=== PATIENT | female | born 1935 | race Caucasian/White ===

== ENCOUNTER 2017-03-04 04:55 | Emergency (ER) | payer MEDICARE, OTHER ==
[2017-03-04] MEDS ORDERED: Aspirin 81 MG Tab.Chew PO ONE (04:59)
[2017-03-04] MEDS ORDERED: Lactated Ringers 1,000 ML IV ONE (05:43)
[2017-03-04] MEDS ORDERED: Prochlorperazine 10 MG/2 ML SDV IVPUSH ONE (05:43)
[2017-03-04] MEDS ORDERED: Sodium Chloride 0.9% 10 ML Syringe FLUSH PRN (05:51)
--- NOTE | 2017-03-04 06:02 | EDM.PDOC ---
ED HPI GENERAL MEDICAL PROBLEM - General Chief Complaint: Gastrointestinal Problem Stated Complaint: NVD Time Seen by Provider: 03/04/17 05:50 Source of Information: Reports: Patient, RN History Limitations: Reports: No Limitations - History of Present Illness INITIAL COMMENTS - FREE TEXT/NARRATIVE: 81 yo female arrives from her assisted living facility via EMS for vomiting and diarrhea that began about 3 pm yesterday. Denies fever or blood in her stool or emesis. No abdominal pain. No known exposures. Onset: Gradual Onset Date: 03/03/17 Onset Time: 03:00 Duration: Hour(s):, Waxing/Waning Location: Reports: Other (no pain) Severity: Moderate Improves with: Reports: None Worsens with: Reports: Eating Context: Reports: Sick Contact Associated Symptoms: Reports: Loss of Appetite, Nausea/Vomiting, Weakness. Denies: Diaphoresis, Fever/Chills Treatments BATH STEWARD: Reports: Other (see below) (none) - Related Data Allergies Allergy/AdvReac Type Severity Reaction Status Date / Time acetaminophen [From Percocet] Allergy Hallucinati Verified 03/04/17 05:40 ons oxycodone HCl [From Percocet] Allergy Hallucinati Verified 03/04/17 05:40 ons Home Meds: Home Meds Aspirin [[place] Aspirin] 81 mg PO DAILY #30 tab.chew 05/08/14 [Rx] Benazepril HCl [Benazepril HCl] 5 mg PO DAILY 05/08/14 [History] Citalopram Hydrobromide [Citalopram HBr] 20 mg PO BEDTIME 05/08/14 [History] Hydrochlorothiazide 12.5 mg PO DAILY 05/08/14 [History] Metoprolol Succinate [Toprol XL] 50 mg PO DAILY 05/08/14 [History] Psyllium with Sucrose [Metamucil] 1 dose PO .Q OTHER DAY 05/08/14 [History] Donepezil [Aricept] 5 mg PO BEDTIME 02/13/15 [History] Naproxen Sodium [Naproxen Sodium ER] 500 mg PO BIDAC #20 tablet.er 02/13/15 [Rx] Scopolamine [Transderm-Scop] 1 patch TD Q3D #7 patch 02/13/15 [Rx] Prochlorperazine [Compazine] 25 mg RC TID PRN #7 supp.rect 03/04/17 [Rx] Past Medical History Cardiovascular History: Reports: Hypertension Other Gastrointestinal History: occasional constipation Other Musculoskeletal History: arthritis Other Neuro History: trouble with memory Social & Family History - Family History Family Medical History: Noncontributory - Tobacco Use Smoking Status *Q: Never Smoker Years of Tobacco use: 10 Packs/Tins Daily: 0.5 Used Tobacco, but Quit: Yes Month Tobacco Last Used: unknown Second Hand Smoke Exposure: No - Alcohol Use Days Per Week of Alcohol Use: 0 - Recreational Drug Use Recreational Drug Use: No ED ROS GENERAL - Review of Systems Review Of Systems: See Below Constitutional: Reports: No Symptoms HEENT: Reports: No Symptoms Respiratory: Reports: No Symptoms Cardiovascular: Reports: No Symptoms Endocrine: Reports: No Symptoms GI/Abdominal: Reports: Diarrhea, Decreased Appetite, Nausea, Vomiting. Denies: Abdominal Pain, Black Stool, Bloody Stool, Constipation, Distension, Flatus, Hematemesis, Hematochezia, Melena, Stool Incontinence : Reports: No Symptoms Musculoskeletal: Reports: No Symptoms Skin: Reports: No Symptoms Neurological: Reports: No Symptoms Psychiatric: Reports: No Symptoms ED EXAM, GI/ABD - Physical Exam Exam: See Below Exam Limited By: No Limitations General Appearance: Alert, WD/WN, Mild Distress Eyes: Bilateral: Normal Appearance Ears: Normal External Exam, Normal Canal, Hearing Grossly Normal Nose: Normal Inspection, Normal Mucosa, No Blood Throat/Mouth: Normal Inspection, Normal Lips, Normal Oropharynx, Normal Voice, No Airway Compromise Head: Atraumatic, Normocephalic Neck: Normal Inspection Respiratory/Chest: No Respiratory Distress, Lungs Clear, Normal Breath Sounds, No Accessory Muscle Use Cardiovascular: Regular Rate, Rhythm, No Edema GI/Abdominal Exam: Normal Bowel Sounds, Soft, Non-Tender, No Distention Back Exam: Normal Inspection. No: CVA Tenderness (R), CVA Tenderness (L) Extremities: Normal Inspection, Normal Range of Motion, Non-Tender, No Pedal Edema Neurological: Alert, Oriented, CN II-XII Intact, Normal Cognition, No Motor/ Sensory Deficits Psychiatric: Normal Affect, Normal Mood Skin Exam: Warm, Dry, Intact, Normal Color, No Rash Lymphatic: No Adenopathy Course - Vital Signs Last Recorded V/S: Last Vital Signs Temp 36.4 C 03/04/17 06:14 Pulse 86 03/04/17 06:14 Resp 20 03/04/17 06:14 BP 172/96 H 03/04/17 06:14 Pulse Ox 96 03/04/17 06:14 - Orders/Labs/Meds Orders: Active Orders 24 hr Category Date Time Status Sodium Chloride 0.9% [Saline Flush] Med 03/04/17 05:51 Active 10 ml FLUSH ASDIRECTED PRN Saline Lock Insert [OM.PC] Routine Oth 03/04/17 05:51 Ordered EKG 12 Lead [EK] Routine Ther 03/04/17 05:09 Stop Req Medication Orders Sodium Chloride (Saline Flush) 10 ml FLUSH ASDIRECTED PRN PRN Reason: Keep Vein Open Last Admin: 03/04/17 06:27 Dose: 10 ml Labs: Laboratory Tests 03/04/17 Range/Units 06:05 Sodium 133 L (135-145) mmol/L Potassium 3.7 (3.5-5.3) mmol/L Chloride 97 L (100-110) mmol/L Carbon Dioxide 25 (23-29) mmol/L BUN 19 (8-23) mg/dL Creatinine 0.9 (0.6-1.3) mg/dL Est Cr Clr Drug Dosing 45.89 mL/min Estimated GFR (MDRD) > 60 (>60) BUN/Creatinine Ratio 21.1 H (9-20) Glucose 204 H D (80-116) mg/dL Calcium 9.5 (8.6-10.2) mg/dL Meds: Medications Generic Name Dose Route Start Last Admin Trade Name Freq PRN Reason Stop Dose Admin Sodium Chloride 10 ml 03/04/17 05:51 03/04/17 06:27 Saline Flush FLUSH 10 ml ASDIRECTED PRN Administration Keep Vein Open Discontinued Medications Generic Name Dose Route Start Last Admin Trade Name Freq PRN Reason Stop Dose Admin Diphenoxylate HCl/Atropine 1 tab 03/04/17 06:42 Lomotil 0.025-2.5 Mg PO 03/04/17 06:43 ONETIME ONE Lactated Ringer's 1,000 mls @ 1,000 mls/hr 03/04/17 05:43 03/04/17 06:27 Ringers, Lactated IV 03/04/17 06:42 1,000 mls/hr BOLUS ONE Administration Prochlorperazine Edisylate 5 mg 03/04/17 05:43 03/04/17 06:27 Compazine IVPUSH 03/04/17 05:44 5 mg ONETIME ONE Administration Departure - Departure Time of Disposition: 07:10 Disposition: Home, Self-Care 01 Condition: Fair Clinical Impression: Gastroenteritis, Vomiting, Diarrhea - Discharge Information Prescriptions: Prochlorperazine [Compazine] 25 mg RC TID PRN #7 supp.rect PRN Reason: Nausea Referrals: Christian Mancini MD [Primary Care Provider] - Forms: ED Department Discharge Additional Instructions: Take Compazine 25 mg suppository RI every 8 hrs as needed for nausea. Take Loperamide 1 after each loose stool up to 6 a day. Clear liquids only until no vomiting for 6 hrs, then advance diet slowly as tolerated. Recheck with your doctor if worse or not improving. - My Orders Last 24 Hours: My Active Orders 03/04/17 05:09 EKG 12 Lead [EK] Routine 03/04/17 05:51 Sodium Chloride 0.9% [Saline Flush] 10 ml FLUSH ASDIRECTED PRN Saline Lock Insert [OM.PC] Routine - Assessment/Plan Last 24 Hours: My Active Orders 03/04/17 05:09 EKG 12 Lead [EK] Routine 03/04/17 05:51 Sodium Chloride 0.9% [Saline Flush] 10 ml FLUSH ASDIRECTED PRN Saline Lock Insert [OM.PC] Routine
[2017-03-04 06:15] VITALS: BP 172/96
[2017-03-04] MEDS ORDERED: Atropine/Diphenoxylate 0.025-2.5 MG Tab PO ONE (06:42)
== END 2017-03-04 08:15 | disposition home or self-care (01) ==
LOC: FB.ED 04:55
DX: K52.9 Noninfective gastroenteritis and colitis, unspecified (principal); I10 Essential (primary) hypertension; M19.90 Unspecified osteoarthritis, unspecified site; Z79.899 Other long term (current) drug therapy; Z88.8 Allergy status to other drugs, medicaments and biological substances; Z79.82 Long term (current) use of aspirin
CPT/HCPCS: 36415; 80048; 93005; 96361; 96374; 99285; A9270; J0780; J7050; J7120; 99284

== ENCOUNTER 2018-03-21 11:12 | Emergency (ER) | payer MEDICARE, OTHER ==
--- NOTE | 2018-03-21 11:41 | EDM.PDOC ---
ED HPI GENERAL MEDICAL PROBLEM - General Chief Complaint: Lower Extremity Injury/Pain Stated Complaint: L KNEE PAIN Time Seen by Provider: 03/21/18 11:36 Source of Information: Reports: Patient History Limitations: Reports: No Limitations - History of Present Illness INITIAL COMMENTS - FREE TEXT/NARRATIVE: Complains of worsening left knee pain since walking more than usual 4 days ago. The pain is progressively worsening, is mainly with weight bearing, and not controlled with Tylenol and Ibuprofen. Onset Date: 03/17/18 Duration: Day(s): (4) Location: Reports: Lower Extremity, Left Severity: Moderate Worsens with: Reports: Other (weight bearing) Treatments LACING STRING CUTTER: Reports: Acetaminophen, NSAIDS left knee Pain Score (Numeric/FACES): 8 - Related Data Allergies Allergy/AdvReac Type Severity Reaction Status Date / Time acetaminophen [From Percocet] Allergy Hallucinati Verified 03/21/18 11:24 ons oxycodone HCl [From Percocet] Allergy Hallucinati Verified 03/21/18 11:24 ons Home Meds: Home Meds Metoprolol Succinate [Toprol XL] 50 mg PO DAILY 05/08/14 [History] Acetaminophen [Tylenol Extra Strength] 500 mg PO Q6HR PRN 03/21/18 [History] Citalopram Hydrobromide [Celexa] 20 mg PO DAILY 03/21/18 [History] Ibuprofen 400 mg PO Q6HR PRN 03/21/18 [History] Vit C/Harvey Ac/Lut/Copper/ZnOx [Preservision Softgel] 1 each PO BID 03/21/18 [ History] Past Medical History Cardiovascular History: Reports: Hypertension Gastrointestinal History: Reports: Other (See Below) Other Gastrointestinal History: occasional constipation Musculoskeletal History: Reports: Arthritis, Osteoarthritis Other Musculoskeletal History: arthritis Neurological History: Reports: Other (See Below) Other Neuro History: trouble with memory Endocrine/Metabolic History: Reports: Diabetes, Type II Social & Family History - Family History Family Medical History: Noncontributory - Tobacco Use Smoking Status *Q: Former Smoker Tobacco Use Within Last Twelve Months: No - Caffeine Use Caffeine Use: Reports: Coffee Review of Systems - Review of Systems Review Of Systems: ROS reveals no pertinent complaints other than HPI. ED EXAM, GENERAL - Physical Exam Exam: See Below Exam Limited By: No Limitations General Appearance: Alert, WD/WN, No Apparent Distress Nose: Normal Inspection Throat/Mouth: No Airway Compromise Head: Atraumatic, Normocephalic Neck: Full Range of Motion Respiratory/Chest: No Respiratory Distress Peripheral Pulses: 2+: Dorsalis Pedis (L) GI/Abdominal: No Distention Extremities: Other (Tenderness to left medial knee and proximal aspect of medial calf) Neurological: Normal Cognition, No Motor/Sensory Deficits Psychiatric: Normal Affect, Normal Mood Skin Exam: Warm, Dry, Intact Course - Vital Signs Last Recorded V/S: Last Vital Signs Temp 36.4 C 03/21/18 11:20 Pulse 63 03/21/18 11:20 Resp 17 03/21/18 11:20 BP 167/58 H 03/21/18 11:20 Pulse Ox 97 03/21/18 11:20 - Orders/Labs/Meds Orders: Active Orders 24 hr Category Date Time Status Knee 3V Lt [CR] Stat Exams 03/21/18 11:35 Taken VL Duplex Lwr Ext Veins Ltd Lt [US] Stat Exams 03/21/18 11:35 Taken - Radiology Interpretation Free Text/Narrative:: LLE venous US: no DVT per US tech. Left Knee XR: No acute osseous abnormality Departure - Departure Time of Disposition: 13:03 Disposition: Home, Self-Care 01 Condition: Good Clinical Impression: Knee strain Qualifiers: Encounter type: initial encounter Laterality: left Qualified Code(s): S86.912A - Strain of unspecified muscle(s) and tendon(s) at lower leg level, left leg, initial encounter - Discharge Information *PRESCRIPTION DRUG MONITORING PROGRAM REVIEWED*: No *COPY OF PRESCRIPTION DRUG MONITORING REPORT IN PATIENT DINA: Not Applicable Instructions: Knee Sprain, Adult, [id number] Referrals: Romero Acosta MD [Primary Care Provider] - Forms: ED Department Discharge Additional Instructions: Continue Tylenol and Ibuprofen as needed. Use your walker, weight bear as tolerated. Keep appt with your primary physician tomorrow. - My Orders Last 24 Hours: My Active Orders 03/21/18 11:35 Knee 3V Lt [CR] Stat VL Duplex Lwr Ext Veins Ltd Lt [US] Stat - Assessment/Plan Last 24 Hours: My Active Orders 03/21/18 11:35 Knee 3V Lt [CR] Stat VL Duplex Lwr Ext Veins Ltd Lt [US] Stat
[2018-03-21 13:16] VITALS: BP 155/70
--- NOTE | 2018-03-23 11:25 | CR ---
INDICATION: Pain, no trauma. LEFT KNEE: Five views of the left knee were obtained 03/21/2018. No comparison studies were available. Mild hypertrophic degenerative changes are noted at the intercondylar spines and notches, mostly on the left as to the notch and mostly on the right as to the intercondylar spines. There is also some minimal hypertrophic change medially off the right and to a lesser extent the left tibia. A fracture, dislocation, or other acute bone or joint abnormality was not identified. Mild loss of medial femorotibial joint space is noted on the left with moderate loss of medial patellofemoral joint space also on the left. IMPRESSION: Osteoarthritis, overall more prominent on the left than the right with some joint space loss present on the left. MTDD
--- NOTE | 2018-03-23 11:40 | US ---
INDICATION: Pain behind knee, question DVT. DUPLEX ULTRASOUND, LEFT LOWER EXTREMITY VEINS: Utilizing 2-D real time, duplex Doppler spectral analysis and color flow imaging, examination of the left lower extremity veins revealed no evidence of deep venous thrombosis or obstruction. Compression views showed no abnormal lack of compression to suggest thrombosis. No evidence of incompetence of the valves was identified. No definite Bakers cyst identified. IMPRESSION: Duplex ultrasound, left lower extremity veins, shows no evidence of deep venous thrombosis or incompetence. [facility]
== END 2018-03-21 13:12 | disposition home or self-care (01) ==
LOC: FB.ED 11:12
DX: S86.912A Strain of unspecified muscle(s) and tendon(s) at lower leg level, left leg, initial encounter (principal); I10 Essential (primary) hypertension; E11.9 Type 2 diabetes mellitus without complications; Z87.891 Personal history of nicotine dependence; Z88.6 Allergy status to analgesic agent; X58.XXXA Exposure to other specified factors, initial encounter
CPT/HCPCS: 73562-LT; 93971-LT; 99283; 99284

== ENCOUNTER 2018-11-14 17:02 | Inpatient (IN) | payer MEDICARE, OTHER ==
--- NOTE | 2018-11-14 17:26 | EDM.PDOC ---
ED HPI GENERAL MEDICAL PROBLEM - General Stated Complaint: confusion Time Seen by Provider: 11/14/18 17:15 - History of Present Illness INITIAL COMMENTS - FREE TEXT/NARRATIVE: pt comes from assisted livening with her son with concerns for increased gen weakness and confusion today, pt here oriented only to self, follow simple commands and denies pain or resp or gi sx. pt per report has been having chronic pain at left hip area and recently started on fentanyl 12.5 as well prednisone for this issue. pt also has been on treatment for UTI couple weeks ago. - Related Data Allergies Allergy/AdvReac Type Severity Reaction Status Date / Time acetaminophen [From Percocet] Allergy Hallucinati Verified 11/14/18 17:26 ons morphine Allergy Other Verified 11/14/18 17:29 oxycodone HCl [From Percocet] Allergy Hallucinati Verified 11/14/18 17:26 ons propoxyphene Allergy Other Verified 11/14/18 17:29 [From Darvocet-N] Home Meds: Home Meds Metoprolol Succinate [Toprol XL] 50 mg PO DAILY 05/08/14 [History] Acetaminophen [Tylenol Extra Strength] 500 mg PO Q6HR PRN 03/21/18 [History] Citalopram Hydrobromide [Celexa] 20 mg PO DAILY 03/21/18 [History] Calcium Carbonate/Vitamin D3 [Calcium 500 + Vit D 400] 1 each PO BID 11/14/18 [ History] Carboxymethylcellulose Sodium [Refresh Tears 0.5% Ophth Soln] 15 ml EYEBOTH BID 11/14/18 [History] Loperamide HCl [Imodium A-D] 2 mg PO DAILY PRN 11/14/18 [History] Psyllium Husk [Daily Fiber] 1.04 gm PO DAILY 11/14/18 [History] Vit C/E/Zn/Coppr/Lutein/Zeaxan [Preservision Areds 2 Softgel] 1 cap PO BID 11/14 [History] fentaNYL [Fentanyl] 12 mcg TD Q72H 11/14/18 [History] Past Medical History HEENT History: Reports: Impaired Vision Cardiovascular History: Reports: Hypertension Gastrointestinal History: Reports: Other (See Below) Other Gastrointestinal History: occasional constipation Musculoskeletal History: Reports: Arthritis, Osteoarthritis Other Musculoskeletal History: arthritis Neurological History: Reports: Other (See Below) Other Neuro History: trouble with memory Endocrine/Metabolic History: Reports: Diabetes, Type II Social & Family History - Family History Family Medical History: Noncontributory - Caffeine Use Caffeine Use: Reports: Coffee ED ROS GENERAL - Review of Systems Review Of Systems: Unable To Obtain (due to AMS) ED EXAM, GENERAL - Physical Exam Exam: See Below Exam Limited By: Altered Mental Status General Appearance: Alert Eye Exam: Bilateral Eye: PERRL Nose: Normal Inspection, Normal Mucosa Throat/Mouth: Normal Inspection Respiratory/Chest: No Respiratory Distress, Lungs Clear Cardiovascular: Normal Peripheral Pulses, Regular Rate, Rhythm GI/Abdominal: Normal Bowel Sounds, Soft, Non-Tender Back Exam: Normal Inspection Extremities: Normal Inspection, Normal Range of Motion Neurological: Alert, CN II-XII Intact. No: Oriented Psychiatric: Flat Affect Skin Exam: Warm Course - Vital Signs Text/Narrative:: labs and CXR results were explained to pt son , pt has gen weakness and some confusion likely related to dehydration and recent fentanyl use , will admit pt, hold fentanyl and continue with gentle hydration. Last Recorded V/S: Last Vital Signs Temp 36.3 C 11/14/18 17:10 Pulse 69 11/14/18 17:10 Resp 12 11/14/18 17:10 BP 127/67 11/14/18 17:10 Pulse Ox 95 11/14/18 17:10 - Orders/Labs/Meds Orders: Active Orders 24 hr Category Date Time Status Patient Status [ADT] Routine ADT 11/14/18 18:20 Ordered Oxygen Therapy [RC] PRN Care 11/14/18 18:20 Ordered Up With Assistance [RC] ASDIRECTED Care 11/14/18 18:20 Ordered VTE/DVT Education [RC] Per Unit Routine Care 11/14/18 18:20 Ordered Vital Signs [RC] Q8H Care 11/14/18 18:20 Ordered Regular Diet [DIET] Diet 11/15/18 Breakfast Ordered CXR [Chest 1V Frontal] [CR] Stat Exams 11/14/18 17:29 Ordered Enoxaparin [Lovenox] Med 11/14/18 18:30 Ordered 30 mg SUBCUT Q24H Sodium Chloride 0.9% @ 100 MLS/HR(1,000ml) Med 11/14/18 17:30 Ordered Sodium Chloride 0.9% [Normal Saline] 1,000 ml IV ASDIRECTED Sodium Chloride 0.9% [Saline Flush] Med 11/14/18 17:40 Active 10 ml FLUSH ASDIRECTED PRN Sodium Chloride 0.9% [Saline Flush] Med 11/14/18 18:20 Ordered 10 ml FLUSH ASDIRECTED PRN Peripheral IV Insertion Adult [OM.PC] Routine Oth 11/14/18 18:20 Ordered Resuscitation Status Routine Resus Stat 11/14/18 18:20 Ordered Medication Orders Sodium Chloride (Normal Saline) 1,000 mls @ 100 mls/hr IV ASDIRECTED CHECO Last Admin: 11/14/18 17:45 Dose: 100 mls/hr Sodium Chloride (Saline Flush) 10 ml FLUSH ASDIRECTED PRN PRN Reason: IV Use Last Admin: 11/14/18 17:40 Dose: 10 ml Labs: Laboratory Tests 11/14/18 11/14/18 11/14/18 Range/Units 17:37 17:38 17:38 WBC 11.2 (4.5-12.0) X10-3/uL RBC 3.32 (3.23-5.20) x10(6)uL Hgb 10.1 L (11.5-15.5) g/dL Hct 30.9 D (30.0-51.3) % MCV 93.0 (80-96) fL MCH 30.4 (27.7-33.6) pg MCHC 32.7 (32.2-35.4) g/dL RDW 13.0 (11.5-15.5) % Plt Count 437 H (125-369) X10(3)uL MPV 6.8 L (7.4-10.4) fL Add Manual Diff Yes Neutrophils % (Manual) 93 H (46-82) % Lymphocytes % (Manual) 4 L (13-37) % Monocytes % (Manual) 3 L (4-12) % Toxic Granulation Few H (NOT SEEN) Sodium 135 (135-145) mmol/L Potassium 4.9 (3.5-5.3) mmol/L Chloride 97 L (100-110) mmol/L Carbon Dioxide 29 (21-32) mmol/L BUN 33 H (7-18) mg/dL Creatinine 1.1 H (0.55-1.02) mg/dL Est Cr Clr Drug Dosing 37.68 mL/min Estimated GFR (MDRD) 47 L (>60) BUN/Creatinine Ratio 30.0 H (9-20) Glucose 170 H (80-116) mg/dL Calcium 8.7 (8.6-10.2) mg/dL Total Bilirubin 0.5 (0.1-1.3) mg/dL AST 24 (5-25) IU/L ALT 27 (12-36) U/L Alkaline Phosphatase 252 H (56-112) IU/L Total Protein 6.0 (6.0-8.0) g/dL Albumin 3.0 L (3.2-4.6) g/dL Globulin 3.0 g/dL Albumin/Globulin Ratio 1.0 Urine Color Yellow (YELLOW) Urine Appearance Clear (CLEAR) Urine pH 7.0 H (5.0-6.5) Ur Specific [place] 1.010 (1.010-1.025) Urine Protein Negative (NEGATIVE) mg/dL Urine Glucose (UA) Normal (NORMAL) mg/dL Urine Ketones 15 H (NEGATIVE) mg/dL Urine Occult Blood Negative (NEGATIVE) Urine Nitrite Negative (NEGATIVE) Urine Bilirubin Negative (NEGATIVE) Urine Urobilinogen 1 H (NEGATIVE) mg/dL Ur Leukocyte Esterase Negative (NEGATIVE) Urine RBC 0-5 (0-5) Urine WBC 0-5 (0-5) Ur Squamous Epith Cells Occasional (NS,R,O) Urine Bacteria Rare H (NS) Meds: Medications Generic Name Dose Route Start Last Admin Trade Name Freq PRN Reason Stop Dose Admin Sodium Chloride 1,000 mls @ 100 mls/hr 11/14/18 17:30 11/14/18 17:45 Normal Saline IV 100 mls/hr ASDIRECTED CHECO Administration Sodium Chloride 10 ml 11/14/18 17:40 11/14/18 17:40 Saline Flush FLUSH 10 ml ASDIRECTED PRN Administration IV Use Departure - Departure Time of Disposition: 18:45 Disposition: Admitted As Inpatient 66 Clinical Impression: Altered mental state - Discharge Information *PRESCRIPTION DRUG MONITORING PROGRAM REVIEWED*: Not Applicable *COPY OF PRESCRIPTION DRUG MONITORING REPORT IN PATIENT DINA: Not Applicable - Problem List & Annotations (1) Altered mental state SNOMED Code(s): 432834488 Code(s): R41.82 - ALTERED MENTAL STATUS, UNSPECIFIED Status: Acute Current Visit: Yes Qualifiers: Altered mental status type: unspecified Qualified Code(s): R41.82 - Altered mental status, unspecified - My Orders Last 24 Hours: My Active Orders 11/14/18 17:29 CXR [Chest 1V Frontal] [CR] Stat 11/14/18 17:30 Sodium Chloride 0.9% @ 100 MLS/HR(1,000ml) Sodium Chloride 0.9% [Normal Saline] 1,000 ml IV ASDIRECTED 11/14/18 17:40 Sodium Chloride 0.9% [Saline Flush] 10 ml FLUSH ASDIRECTED PRN 11/14/18 18:20 Patient Status [ADT] Routine Oxygen Therapy [RC] PRN Up With Assistance [RC] ASDIRECTED VTE/DVT Education [RC] Per Unit Routine Vital Signs [RC] Q8H Sodium Chloride 0.9% [Saline Flush] 10 ml FLUSH ASDIRECTED PRN Peripheral IV Insertion Adult [OM.PC] Routine Resuscitation Status Routine 11/14/18 18:30 Enoxaparin [Lovenox] 30 mg SUBCUT Q24H 11/15/18 Breakfast Regular Diet [DIET] - Assessment/Plan Last 24 Hours: My Active Orders 11/14/18 17:29 CXR [Chest 1V Frontal] [CR] Stat 11/14/18 17:30 Sodium Chloride 0.9% @ 100 MLS/HR(1,000ml) Sodium Chloride 0.9% [Normal Saline] 1,000 ml IV ASDIRECTED 11/14/18 17:40 Sodium Chloride 0.9% [Saline Flush] 10 ml FLUSH ASDIRECTED PRN 11/14/18 18:20 Patient Status [ADT] Routine Oxygen Therapy [RC] PRN Up With Assistance [RC] ASDIRECTED VTE/DVT Education [RC] Per Unit Routine Vital Signs [RC] Q8H Sodium Chloride 0.9% [Saline Flush] 10 ml FLUSH ASDIRECTED PRN Peripheral IV Insertion Adult [OM.PC] Routine Resuscitation Status Routine 11/14/18 18:30 Enoxaparin [Lovenox] 30 mg SUBCUT Q24H 11/15/18 Breakfast Regular Diet [DIET]
[2018-11-14] MEDS: Sodium Chloride 0.9% 10 ML Syringe FLUSH PRN ×2 (17:40→22:50)
[2018-11-14] MEDS: Sodium Chloride 0.9% 1,000 ML IV SCH (17:45)
[2018-11-14] MEDS ORDERED: Sodium Chloride 0.9% 10 ML Syringe FLUSH PRN (18:20)
[2018-11-14] MEDS ORDERED: Enoxaparin 30 MG/0.3 ML Syringe SUBCUT SCH (18:30)
[2018-11-15] MEDS: Sodium Chloride 0.9% 1,000 ML IV SCH ×2 (03:30→14:22)
[2018-11-15] MEDS ORDERED: Metoprolol Succinate 25 MG Tab.ER PO SCH (09:00)
[2018-11-15] MEDS: Acetaminophen 500 MG Tab PO SCH ×3 (09:16→20:33)
[2018-11-15] MEDS: Citalopram 20 MG Tab PO SCH (09:16)
[2018-11-15] MEDS: Carboxymethylcellulose Sodium 0.5% Ophth Soln 15 ML Bottle EYEBOTH SCH ×2 (09:17→20:32)
[2018-11-15] MEDS ORDERED: Iopamidol 755 Mg/ML 75 ML Bottle IV ONE (10:24)
--- NOTE | 2018-11-15 13:53 | CR ---
INDICATION: Altered mental status. CHEST: An AP upright portable view of the chest, 11/14/18, was compared with and 11/12/12. The heart appears slightly generous in size but is emphasized by AP positioning and relatively poor inspiration. The aorta is tortuous with calcification in the arch. Overlying EKG leads are noted. Diminished bone density is note, compatible with osteoporosis. Apparently healed facture of the proximal left humerus is noted. The lungs appear to be somewhat hyperaerated. A definite active infiltrate or effusion was not identified. There is some linear density at the right lung base, which could represent linear atelectatic type change. IMPRESSION: 1. No definite acute process but cannot exclude some minimal linear atelectatic change at the right lung base. 2. Probable ASHD. 3. Probable COPD. MTDD
--- NOTE | 2018-11-15 14:55 | CT ---
INDICATION: Back pain. CT CHEST, ABDOMEN, AND PELVIS WITH CONTRAST: Spiral 3.75 mm axial sections were obtained through the chest, abdomen, and pelvis with sagittal and coronal reconstructions with 75 mL Isovue 370 at 1.5 mL/second, 11/15/18. No comparison CTs were available. There is a comparison x-ray of the pelvis dated 06/25/09. In addition to the standard images of the abdomen and pelvis, an 8-minute delayed set of images was obtained. Total exam DLP = 1,507.83 mGy-cm. CT CHEST: Examination of the chest was obtained as noted above and revealed calcifications in the arch of the aorta and brachiocephalic vessels. No mediastinal mass was seen. The heart appears slightly generous with probable coronary artery calcifications. No pericardial effusion was seen. No significant appearing mediastinal lymphadenopathy was seen. There is some minimal infiltrate and/or atelectasis in the middle lobe. No nodular masses were identified in the lungs or pleural spaces. No definite consolidating pneumonia or effusion was seen. IMPRESSION: 1. Infiltrate and/or subsegmental atelectasis middle lobe. Pneumonia could be present in that area. 2. Probable ASHD. 3. ASD. 4. No acute abnormality otherwise suggested. CT ABDOMEN AND PELVIS: Examination of the abdomen and pelvis was obtained by CT as noted above. At the posterolateral upper pole of the left kidney, there is an oval low density mass, most likely representing a simple cyst, measuring 3 cm. It is splaying the renal parenchyma somewhat and is somewhat exophytic. No other renal masses were identified - no definite renal calcinosis was seen. The proximal ureters, especially the right, are slightly dilated of questionable significance, where it becomes normal in caliber, raising question of a relative obstructive process in that area. No specific etiology for obstruction was seen at the site of transition to normal ureteral diameters. This appearance may be an anatomic variant or due to previous obstruction and should be correlated clinically. The urinary bladder had a thickened wall, raising question of cystitis. It is impressed upon by soft tissue density emanating from the area of the pubic symphysis on the right to a greater extent than the left with what appears to be an expansile lesion or severely comminuted fracture with hemorrhage on the right, producing a soft tissue mass impressing on the urinary bladder along its anterior aspect. Additionally, adjacent to that area and along the right lateral aspect of the urinary bladder , there is an oval low density lesion with rind that appears to be at least superficially connected to the urinary bladder and could represent a large diverticulum. No definite contrast was noted within this area, however, and it could represent a mass, possibly a hematoma. It measures 79 x 39 mm on axial image #89 of the delayed images obtained at 1202 hours. The possibility of a pathologic comminuted fracture of the symphysis area would be a consideration - correlate clinically. Also noted were what appeared to be insufficiency fractures through the sacral ala bilaterally, extending craniocaudad and anteroposterior with minimal deformity. A moderate dextroconvex rotoscoliosis of the upper middle lumbar spine is noted. Fairly severe degenerative disk disease is noted from L1 through S1 with hypertrophic degenerative changes of moderate to moderately severe degree. Also noted are degenerative changes and disk disease in the middle to lower thoracic spine levels with multiple vacuum disk phenomena noted throughout the lumbosacral spine and thoracic spine areas. No definite acute vertebral fracture site was identified. There is slight reversal of normal cervical lordosis in the upper middle lumbar spine. The spleen had a normal appearance. The gallbladder is absent, compatible with history of its removal. The common bile duct is normal in caliber, allowing for that. No definite liver lesions were identified with the liver appearing normal in density and size. The pancreas was diminutive in size but otherwise unremarkable. No definite adrenal abnormality was seen. No retroperitoneal mass was seen. Calcifications are noted in the aorta, distal splenic artery, and in the iliac and femoral arteries. Hip pinning device is noted at the left hip. The appendix is not definitely visualized - no evidence of free air or bowel obstruction was seen. Sigmoid diverticulosis is noted without definite evidence of diverticulitis. IMPRESSION: 1. Appearance of an expansile comminuted fracture site at the right pubic ramus with a lesser degree of similar appearance at the pubic symphysis on the left. There appears to be somewhat of a soft tissue mass associated with this area of expanded fractured right pubic symphysis possibly with some contrast enhancement, raising question of a pathologic fracture of the pubic symphysis. Additionally, adjacent to the right lateral urinary bladder, there is a 7.9 cm x 3.9 cm low density mass, which may represent a hematoma or possibly a large bladder diverticulum. It did not fill with contrast on the 90-minute delayed images. 2. Thickening of the urinary bladder wall, raising question of cystitis. 3. Degenerative changes and disk disease thoracolumbosacral spine with scoliosis. 4. ASD. 5. Insufficiency type fractures are suggested longitudinally through the sacral ala bilaterally with minimal deformity. 6. Mild sigmoid diverticulosis is noted without evidence of diverticulitis. MTDD
[2018-11-16] MEDS: traMADol 50 MG Tab PO PRN (07:45)
--- NOTE | 2018-11-16 08:01 | HP ---
ADMISSION DATE: 11/14/2018 HISTORY OF PRESENT ILLNESS: Ms. Woodall is an 83-year-old resident of [facility] with a history of osteoarthritis, hypertension, mild dementia, mild cognitive deficits, osteoporosis with previous fractures, and a recent history of back pain. According to the patient and her son, she developed episode of moderately severe back pain approximately a month ago. There was no major injury at the time, but it was significant enough to be seen in the clinic for it. She was treated with Tylenol and Lidoderm patches, but the back pain has persisted. She had a followup visit to the clinic with Dr. Vaughn on November 10, five days ago, where Duragesic patch plus prednisone 60 mg per day was started. Subsequent to that, by the third day after removal of the old patch and application of the new one, she got significantly confused, disoriented, and had episodes of delirium. According to her son, this has happened to a mild degree with previous narcotic medications. She was brought to the ER, where she was evaluated and is now admitted to acute care. PAST MEDICAL HISTORY: Not reliable from the patient, but on review of her records, significant for osteoarthritis of the knees. Last month she was also admitted to a hospital while on vacation in [place] for apparent blood in the stools, loose stools, and possible urinary tract infection. Evaluation in clinic showed severe arthritis, osteoporotic compression fractures with severe deforming scoliosis of the lumbar spine. Other past history includes chronic essential hypertension. She is status post appendectomy, cholecystectomy, left humerus fracture, T and A, SKYLAR-BSO. She has had mild dementia, anxiety, and she recently underwent a flexible sigmoidoscopy for suspected rectal mass not seen during scope. MEDICATIONS: 1. Duragesic patch removed yesterday due to the mental status change. 2. She has also been on prednisone 60 mg per day, starting 3 days ago. 3. Toprol-XL 25 mg daily. 4. Tylenol 1000 mg b.i.d. 5. Lidoderm 5% patch p.r.n. 6. Calcium with vitamin D. 7. Multiple vitamin 1 daily. 8. Ibuprofen 400 mg t.i.d. 9. Citalopram 20 mg daily. 10.Imodium p.r.n. 11.Refresh Artificial Tears. 12.Psyllium capsules 2 daily. ALLERGIES: Darvocet, morphine and Percocet, all listed as causing confusion. According to the son, she has also had some confusion with Tylenol with Codeine. REVIEW OF SYSTEMS: GENERAL: No seizure, syncope, or recent significant weight change. SKIN: Negative for rash. HEENT: No recent changes in hearing or vision. She has had previous cataract surgeries. No sore throat or URI. No cough or purulent sputum. No chest pain or palpitations. No abdominal pain or nausea. She has had intermittent loose stools and the episode of hematochezia last month. No joint inflammation, swelling, skin rash. PHYSICAL EXAMINATION: GENERAL: She is alert, but she is a poor historian. VITAL SIGNS: Blood pressure 133/69, pulse 78 and regular, respirations normal, O2 saturation 96% on room air, temp 98.4, weight 139 pounds. SKIN: Anicteric, warm, dry without rash or sign of trauma. HEENT: TMs are occluded by cerumen in the canal. Pupils are equal and reactive with evidence of bilateral previous cataract surgery and IOLs in place. Oropharynx is clear with false upper and lower teeth. Mouth, dry. LUNGS: Clear to the bases. BACK: Straight. She has slight tenderness to palpation over left L4-5 area, paraspinous. HEART: Regular without murmur, rub, or gallop. There are occasional extrasystoles present. ABDOMEN: Normal bowel sounds. Soft and nontender. No masses and no organomegaly. EXTREMITIES: Show excellent pedal pulses. No edema. There is no discomfort to full flexion at the hips or drawing her knees up toward her chest. She has mild left low back pain on internal rotation at the left hip, but 15 degree rotation in each direction is comfortable. LABORATORY DATA: White count 11,200, hemoglobin 10.1, MCV 93, platelets 437,000, 93 segs, 4 lymphs, 3 monos. Electrolytes normal. BUN 33, creatinine 1.1, glucose 170, alkaline phosphatase 252, albumin 3.0. Urinalysis is unremarkable. Review of the old lumbar spine x-ray at the clinic showed severe deforming scoliosis of the lumbar spine with multiple compression fractures, osteoarthritic spurs and obvious osteoporosis. ASSESSMENT: 1. Confusion and delirium, medication related, due to a combination of Duragesic and steroid and prednisone. 2. Back pain, multifactorial, but most probably due to her osteoporotic compression fractures with deforming scoliosis and arthritis. 3. History of previous rectal bleeding and question of rectal mass accompanied by recent drop in hemoglobin of 4 g noted as an outpatient. 4. Palliative care. PLAN: She is admitted for further investigation. We will plan CT of the chest, abdomen, and pelvis to rule out retroperitoneal area masses or other cause for her severe pain. We will try analgesia with tramadol. Assess carefully for mental health effects. Continue her Toprol and provide palliative care measures for her underlying medical problems. /[id number] WU/YANET
[2018-11-16] MEDS ORDERED: Morphine 4 MG/ML Syringe SUBCUT PRN ×2 (08:21→15:24)
[2018-11-16] MEDS ORDERED: Bisacodyl 10 MG Supp RECTAL ONE (09:47)
[2018-11-16] MEDS ORDERED: LORazepam 1 MG Tab ONE (09:51)
[2018-11-16] MEDS: Citalopram 20 MG Tab PO SCH (10:06)
[2018-11-16] MEDS: Carboxymethylcellulose Sodium 0.5% Ophth Soln 15 ML Bottle EYEBOTH SCH ×2 (10:06→20:34)
[2018-11-16] MEDS: Acetaminophen 500 MG Tab PO SCH ×4 (10:06→22:00)
[2018-11-16] MEDS ORDERED: LORazepam 0.5 MG Tab PRN (11:32)
[2018-11-16] MEDS ORDERED: Morphine 2 MG/ML Syringe IVPUSH STA (15:27)
[2018-11-16] MEDS ORDERED: LORazepam 2 MG/ML SDV IVPUSH ONE (15:43)
[2018-11-16] MEDS ORDERED: Gadoteridol 279.3 MG/ML 10 ML SDV IVPUSH ONE (16:53)
[2018-11-17] MEDS: Citalopram 20 MG Tab PO SCH (08:45)
[2018-11-17] MEDS: Acetaminophen 500 MG Tab PO SCH ×3 (08:45→21:04)
[2018-11-17] MEDS: Carboxymethylcellulose Sodium 0.5% Ophth Soln 15 ML Bottle EYEBOTH SCH ×2 (08:45→21:03)
--- NOTE | 2018-11-17 08:48 | PN ---
DATE SEEN: 11/16/2018 HISTORY: Ashlyn is an 83-year-old woman from [facility] in [place], who was admitted on 11/14/2018 for back pain, confusion, and agitation. She had been having chronic back pain slowly worsening and got confused after institution or initiation of Duragesic and oral prednisone. She had previous confusion from other narcotics, and on admission, she was started on oral tramadol for pain control. She has not had good pain control and this morning is quite agitated with any movement, describing back pain. CT of abdomen and pelvis showed an apparent pathologic fracture of the right pubic ramus with no known primary. She also had multiple deforming compression fractures of the spine. OBJECTIVE: GENERAL: She is examined, lying down in her bed, and sitting up this morning. VITAL SIGNS: Blood pressure 160/85, pulse 73 and regular, respirations 16, O2 saturation 98% on room air, temp 96, weight 139 pounds. SKIN: Anicteric. Warm and dry without rash. MOUTH: Dry. LUNGS: Clear. HEART: Regular with no murmur heard. ABDOMEN: Normal bowel sounds. Soft, nontender, but she does have tenderness when the right pubic ramus is palpated. With movement, she moves fairly freely, suggesting she is not in acute vertebral compression fracture, but she does have slight tenderness to palpation over her sacroiliac area on the left. LABORATORY DATA: Hemoglobin 10.1, creatinine 1.1. Alkaline phosphate is 2.52. ASSESSMENT: 1. An 83-year-old woman with likely pathologic fracture, right pubic ramus, but no known primary. 2. Chronic back pain from multiple compression fractures. 3. Cognitive dysfunction with medication sensitivity. 4. History of depression. PLAN: I have forwarded her CT scan to Dr. Bender in [place] to inquire about possible further delineation radiologically or with needle biopsy. I will wait to hear back from him. Because of her significant pain and agitation, will use morphine 4 mg subcu and watch for response and worsening delirium. We will also consider a small dose of Seroquel for agitation. We will also provide palliative care measures for Ashlyn's underlying chronic back pain, deformity, weakness, etc. /[id number] RO/MODL
--- NOTE | 2018-11-17 13:38 | PN ---
DATE SEEN: 11/17/2018 HISTORY: Ashlyn is an 83-year-old woman with multiple osteoporotic compression fractures, severe spine arthritis and scoliosis, who came in because of severe back pain and confusion after starting Duragesic and prednisone as an outpatient. In the hospital, she was extremely anxious and uncomfortable and did not get adequate relief from Tylenol and tramadol. CT of the chest, abdomen, and pelvis was done, showing a significantly comminuted right superior pubic ramus fracture and also a left-sided fracture. MRI shows this to be a lot of edema, blood clot, and no clear-cut tumor in the bone. She was given IV morphine and IV Ativan for analgesia and sedation for the MRI scanner, and she still remains quite sedated this morning. She has been intolerant of narcotics in the past with confusion. PHYSICAL EXAMINATION: GENERAL: She is examined in her chair this morning. She is quite drowsy but does open her eyes and answers to voice. VITAL SIGNS: Blood pressure 137/66, pulse 70 and regular, respirations 16, O2 saturation 97% on 1 L nasal cannula, temperature 97.6, weight 139 pounds 9 ounces earlier, 3 days ago. SKIN: Shows no sign of rash or trauma. HEENT: Shows her mouth to be dry. LUNGS: Clear to the bases. HEART: Regular without murmur or gallop. ABDOMEN: Had normal bowel sounds. Soft and nontender. EXTREMITIES: Showed no significant edema. ASSESSMENT: 1. Bilateral pubic rami fracture, likely osteoporotic. 2. Sacral insufficiency fractures. 3. Multiple previous spine compression fractures with scoliotic deformity and osteoarthritis. 4. Mild cognitive deficits exacerbated by medication use. 5. Mild normocytic anemia. PLAN: At this time, with no evidence supporting tumor in the bone, we will treat this as osteoporotic fractures. Continue analgesia as tolerated. Follow up labs and consult Physical Therapy for return to function. We will anticipate her mental status will clear sufficiently to be discharged from acute care to hopefully swing bed within 48 to 72 hours. We will also continue to provide palliative care measures for her underlying severe back problems, cognitive deficits, etc. /[id number] WU/YANET
[2018-11-18] MEDS: traMADol 50 MG Tab PO PRN (01:09)
[2018-11-18] MEDS: Acetaminophen 500 MG Tab PO SCH ×4 (06:09→20:01)
[2018-11-18] MEDS: Potassium Chloride 10 MEQ Tab.ER PO SCH (08:50)
[2018-11-18] MEDS: Citalopram 20 MG Tab PO SCH (08:50)
[2018-11-18] MEDS: Carboxymethylcellulose Sodium 0.5% Ophth Soln 15 ML Bottle EYEBOTH SCH ×2 (08:50→19:59)
[2018-11-18] MEDS ORDERED: fentaNYL 12 MCG/HR Transdermal Patch TRDERM SCH (09:30)
[2018-11-18] MEDS: QUEtiapine 25 MG Tab PO SCH (09:51)
--- NOTE | 2018-11-18 12:51 | PN ---
DATE SEEN: 11/18/2018 HISTORY: Ashlyn is an 83-year-old woman, who was admitted because of back pain. She was found to have bilateral pubic rami fractures, likely old compression fractures of the lumbar spine with severe osteoarthritis and scoliosis. She underwent CT of the chest, abdomen, and pelvis because of the nonspecific location of her pain. This showed the pubic ramus fracture on the right that appeared to be a burst fracture. Followup MRI suggested the same with a lot of edema and no suggestion of tumor process. She was quite sedated yesterday from the medication, the IV morphine and the IV Ativan given for the MRI scan. This morning, she is much more alert and awake. She was able to get to the bathroom and get up and walk with assistance of Physical Therapy to the door and back. She does state that she is in discomfort and wants to try back on the Duragesic patch. In addition, this morning she was quite anxious and nervous, and I gave her a dose of 12.5 mg Seroquel. PHYSICAL EXAMINATION: GENERAL: She is awake and answers questions. She has a poor memory, however. VITAL SIGNS: Blood pressure 142/62, pulse 74 and regular, respirations normal, O2 saturation 97% on room air, temp 98.1. SKIN: Clear without rash or sign of trauma. MOUTH: Dry. LUNGS: Clear to the bases. HEART: Regular without murmur or gallop. ABDOMEN: Soft and nontender in the upper abdomen. She does report some slight tenderness when approaching the right pelvic/pubic area. EXTREMITIES: No edema. LABORATORY DATA: Hemoglobin 9.7, potassium 3.1, creatinine 0.8. CRP decreased slightly to 4.4. ASSESSMENT: 1. Osteoporotic fractures of both pubic rami, sacrum, and vertebrae of the spine. 2. Mild cognitive deficits exacerbated by medication use. 3. Osteoporosis. 4. Hypokalemia. 5. Anxiety. PLAN: We will observe for effectiveness of the Seroquel. We will apply the Duragesic patch and again watch for mental status changes. She will continue her calcium and vitamin D, and I will add calcitonin nasal spray for the osteoporosis. Plans are for potential discharge to [facility] tomorrow, if able. /[id number] WU/YANET
[2018-11-18 15:09] LABS: A/G RATIO 1.3 (0.7-1.7); ALBUMIN 2.7 g/dL (2.9-4.4); ALPHA-1-GLOBULIN 0.3 g/dL (0.0-0.4); ALPHA-2-GLOBULIN 0.6 g/dL (0.4-1.0); BETA GLOBULIN 0.6 g/dL (0.7-1.3); GAMMA GLOBULIN 0.6 g/dL (0.4-1.8); GLOBULIN, TOTAL 2.1 g/dL (2.2-3.9); M-SPIKE Not Observed g/dL (Not Observed); PROTEIN, TOTAL, SERUM 4.8 g/dL (6.0-8.5)
[2018-11-18] MEDS: Mineral Oil/Petrolatum/Phenylephrine/Shark Liver Oil Oint 57 GM Tube RECTAL SCH (20:00)
[2018-11-18] MEDS: Calcium Carbonate 500 MG Tablet PO SCH (20:01)
[2018-11-18] MEDS ORDERED: Calcitonin (Salmon) Nasal Spray 3.7 ML Bottle NAS SCH (21:00)
[2018-11-19] MEDS ORDERED: Cholecalciferol (Vitamin D3) 1,000 Unit Tab PO SCH (09:00)
[2018-11-19] MEDS: Citalopram 20 MG Tab PO SCH (09:25)
[2018-11-19] MEDS: Potassium Chloride 10 MEQ Tab.ER PO SCH (09:25)
[2018-11-19] MEDS: Calcium Carbonate 500 MG Tablet PO SCH (09:25)
[2018-11-19] MEDS: QUEtiapine 25 MG Tab PO SCH (09:26)
[2018-11-19] MEDS: Acetaminophen 500 MG Tab PO SCH (09:26)
[2018-11-19] MEDS: Mineral Oil/Petrolatum/Phenylephrine/Shark Liver Oil Oint 57 GM Tube RECTAL SCH (09:26)
[2018-11-19] MEDS: Carboxymethylcellulose Sodium 0.5% Ophth Soln 15 ML Bottle EYEBOTH SCH (09:26)
--- NOTE | 2018-11-19 10:51 | PN ---
DATE SEEN: 11/19/2018 REASON FOR ADMISSION: 1. Back pain. 2. Pelvic pain. HISTORY OF PRESENT ILLNESS: This is an 83-year-old female who was admitted on the because of back pain, vomiting, confusion, and she has been treated with pain control and found to have several fractures of the pubic rami and also compression fractures of the spine. She complains this morning of having decreased appetite and some pain along with some alteration of bowel habits. Denies fever or chills. She slept well. SOCIAL HISTORY: She is going to the half-way today. ALLERGIES: Please see Epic. PHYSICAL EXAMINATION: VITAL SIGNS: Blood pressure today is normal, temperature is 96, and pulse is 93. ENT: Normal. NECK: Soft. CARDIOVASCULAR: Normal. ABDOMEN: Soft. MENTAL STATUS: Dysthymic affect. Normal speech. LABORATORY DATA: No new labs today. FINAL IMPRESSION: 1. Osteoporosis. 2. Mild cognitive dysfunction. 3. Anorexia. 4. Anxiety. 5. Osteoporotic fractures of the pubic rami, sacrum, and vertebrae. PLAN: Discharge the patient today to the half-way on the current prescriptions including multivitamin and Zofran p.r.n. /[id number] SURESH/YANET
[2018-11-19 12:44] VITALS: BP 122/65
--- NOTE | 2018-11-20 03:11 | DISCH ---
DISCHARGE DATE: 11/19/2018 REASON FOR ADMISSION: Alteration of mental status, chronic back pain, compression fractures, mild cognitive dysfunction, anxiety, and hypertension. DISCHARGE DIAGNOSES: Include alteration of mental status, chronic back pain, compression fractures, mild cognitive dysfunction, anxiety, and hypertension and pubic rami fractures. BRIEF HISTORY: An 83-year-old female admitted, has had some side effects from prednisone and narcotics. She was admitted for pain control. MRI confirmed fractures that she had possibly pathologic or osteoporotic. She is currently on fentanyl, which is controlling the pain. She will be discharged today to the care home. DISCHARGE MEDICATIONS: 1. Calcitonin 1 spray at bedtime. 2. Fentanyl 12 mcg every 72 hours. 3. Vitamin D3 of 1000 units daily. 4. Potassium chloride 10 mEq daily. 5. Seroquel 12.5 mg daily. FOLLOWUP: Continue physical therapy and see Dr. Acosta at the care home. I spent more than 35 minutes in the discharge of the patient. /[id number] SURESH/YANET
== END 2018-11-19 11:14 | DRG 543 ==
LOC: FB.ED 17:02 → FB.MS 18:50
PROVIDERS: ADMIT Family Medicine; ATTEND Family Medicine
DX: R41.82 Altered mental status, unspecified (principal); M80.852A Other osteoporosis with current pathological fracture, left femur, initial encounter for fracture; F19.921 Other psychoactive substance use, unspecified with intoxication with delirium; F11.921 Opioid use, unspecified with intoxication delirium; Z66 Do not resuscitate; M80.851A Other osteoporosis with current pathological fracture, right femur, initial encounter for fracture; Z51.5 Encounter for palliative care; R53.1 Weakness; I10 Essential (primary) hypertension; M80.88XA Other osteoporosis with current pathological fracture, vertebra(e), initial encounter for fracture; M19.90 Unspecified osteoarthritis, unspecified site; M41.80 Other forms of scoliosis, site unspecified; F03.90 Unspecified dementia, unspecified severity, without behavioral disturbance, psychotic disturbance, mood disturbance, and anxiety; D64.9 Anemia, unspecified; H54.7 Unspecified visual loss; M80.052A Age-related osteoporosis with current pathological fracture, left femur, initial encounter for fracture; M80.051A Age-related osteoporosis with current pathological fracture, right femur, initial encounter for fracture; M80.00XA Age-related osteoporosis with current pathological fracture, unspecified site, initial encounter for fracture; M80.08XA Age-related osteoporosis with current pathological fracture, vertebra(e), initial encounter for fracture; G89.29 Other chronic pain; E87.6 Hypokalemia; F41.9 Anxiety disorder, unspecified; Z88.5 Allergy status to narcotic agent; Z90.49 Acquired absence of other specified parts of digestive tract; Z90.710 Acquired absence of both cervix and uterus; Z90.79 Acquired absence of other genital organ(s); Z90.722 Acquired absence of ovaries, bilateral; R63.0 Anorexia; Z68.21 Body mass index [BMI] 21.0-21.9, adult
CPT/HCPCS: 36415; 51701; 71045; 80053; 81001; 85025; 96360; 99284; 99285; J7030; 71260; 72197; 74177; 80048; 82270; 84165; 84443; 85651; 86140; 97161-GP; 97165-GO; 97530-GO; A9270-GY; A9579; J1650; J2060; J2270; Q9967

== ENCOUNTER 2018-11-23 08:59 | Inpatient (IN) | payer MEDICARE, OTHER ==
--- NOTE | 2018-11-23 09:30 | EDM.PDOC ---
ED HPI GENERAL MEDICAL PROBLEM - General Chief Complaint: Behavioral/Psych Stated Complaint: DELIRIUM Time Seen by Provider: 11/23/18 09:31 Source of Information: Reports: Patient, Family - History of Present Illness INITIAL COMMENTS - FREE TEXT/NARRATIVE: Presents from [facility] Swing Bed with confusion. Diagnosed with pelvic fracture on 11/14/18, admitted to [facility] and discharged on 11/19/18. There was no injury. Patient has been having pelvic pain since 09/2018. Prescribed fentanyl patch. Patient developed agitation and confusion, fentanyl patch discontinued yesterday, symptoms persist. Complains of pelvic pain, denies chest pain, fever, nausea. Swing bed nurses are unable to care for her, she has required one on one observation. Severity: Moderate Generalized Pain Score (Numeric/FACES): 5 - Related Data Allergies Allergy/AdvReac Type Severity Reaction Status Date / Time propoxyphene Allergy Other Verified 11/23/18 09:03 [From Darvocet-N] oxycodone HCl [From Percocet] AdvReac Intermediate Hallucinati Verified 09:03 ons Home Meds: Home Meds Metoprolol Succinate [Toprol XL] 25 mg PO DAILY 05/08/14 [History] Acetaminophen [Tylenol Extra Strength] 1,000 mg PO TID 03/21/18 [History] Citalopram Hydrobromide [Celexa] 20 mg PO DAILY 03/21/18 [History] Calcium Carbonate/Vitamin D3 [Calcium 500 + Vit D 400] 1 each PO BID 11/14/18 [ History] Carboxymethylcellulose Sodium [Refresh Tears 0.5%] 15 ml EYEBOTH BID 11/14/18 [ History] Loperamide HCl [Imodium A-D] 2 mg PO DAILY PRN 11/14/18 [History] Psyllium Husk [Daily Fiber] 1.04 gm PO DAILY 11/14/18 [History] Vit C/E/Zn/Coppr/Lutein/Zeaxan [Preservision Areds 2 Softgel] 1 cap PO BID 11/14 [History] fentaNYL [Fentanyl] 12 mcg TD Q72H 11/14/18 [History] Calcitonin ([place]) [Miacalcin Nasal [place]] 1 spray DENNISE BEDTIME #1 bottle [Rx] Cholecalciferol (Vitamin D3) [Vitamin D3] 1,000 units PO DAILY #60 tablet [Rx] MO/Pet,Wh/Phenylephrine/Shk Lv [Preparation H Oint] 1 gm RECTAL BID #1 tube [Rx] Potassium Chloride [Klor-Con 10] 10 meq PO DAILY #30 tab.er 11/19/18 [Rx] QUEtiapine [SEROquel] 12.5 mg PO DAILY #15 tablet 11/19/18 [Rx] fentaNYL [Duragesic] 12 mcg TRDERM Q72H #15 patch 11/19/18 [Rx] Past Medical History HEENT History: Reports: Impaired Vision, Macular Degeneration Other HEENT History: wears glasses Cardiovascular History: Reports: Hypertension Other Cardiovascular History: information given by son does not know all of patients hx, patient is unable to answer is confused Respiratory History: Reports: None Gastrointestinal History: Reports: Hemorrhoids, Irritable Bowel Syndrome, Other (See Below) Other Gastrointestinal History: occasional constipation Genitourinary History: Reports: UTI, Recurrent, Other (See Below) Other Genitourinary History: Acute cystitis [employer]IL[employer] SCRE[employer]UTTER History: Reports: Musculoskeletal History: Reports: Arthritis, Osteoarthritis Other Musculoskeletal History: arthritis Neurological History: Reports: Other (See Below) Other Neuro History: trouble with memory Psychiatric History: Reports: Anxiety, Dementia Endocrine/Metabolic History: Reports: None Other Endocrine/Metabolic History: Hyponatremia, hyperlipidemia Hematologic History: Reports: None Dermatologic History: Reports: None - Infectious Disease History Other Infectious Disease History: son unsure, patient unable to answer - Past Surgical History HEENT Surgical History: Reports: Cataract Surgery Cardiovascular Surgical History: Reports: None Respiratory Surgical History: Reports: None GI Surgical History: Reports: Colonoscopy Female Surgical History: Reports: D&C, Hysterectomy Endocrine Surgical History: Reports: None Neurological Surgical History: Reports: None Musculoskeletal Surgical History: Reports: Hip Replacement, Other (See Below) Other Musculoskeletal Surgeries/Procedures:: fx wrist, collar bone Dermatological Surgical History: Reports: None Social & Family History - Family History Family Medical History: Noncontributory - Caffeine Use Caffeine Use: Reports: Coffee, Soda, Tea ED ROS GENERAL - Review of Systems Review Of Systems: ROS reveals no pertinent complaints other than HPI. - Physical Exam Exam: See Below Exam Limited By: No Limitations General Appearance: Alert, No Apparent Distress Eye Exam: Bilateral Eye: EOMI, PERRL Ears: Normal External Exam Nose: Normal Inspection Throat/Mouth: No Airway Compromise Head Exam: Atraumatic, Normocephalic Neck: Full Range of Motion Respiratory/Chest: No Respiratory Distress, Lungs Clear, Normal Breath Sounds Cardiovascular: Regular Rate, Rhythm, No Murmur GI/Abdominal: Soft, Non-Tender, No Distention Neuro Exam (Abbreviated): Alert, No Motor/Sensory Deficits Extremities: Normal Inspection Skin Exam: Warm, Dry, Intact EKG INTERPRETATION EKG Date: 11/23/18 Time: 09:59 Rhythm: Other (trigeminy) Rate (Beats/Min): 78 P-Wave: Present Course - Vital Signs Last Recorded V/S: Last Vital Signs Temp 36.5 C 11/23/18 08:59 Pulse 79 11/23/18 08:59 Resp 18 11/23/18 08:59 BP 99/44 L 11/23/18 08:59 Pulse Ox 99 11/23/18 08:59 - Orders/Labs/Meds Orders: Active Orders 24 hr Category Date Time Status EKG Documentation Completion [RC] ASDIRECTED Care 11/23/18 09:54 Active Gibbs Catheter Insertion [Insert Urinary Catheter] [OM. Care 11/23/18 09:30 Ordered PC] Q24H Urinary Catheter Assessment [RC] QSHIFT Care 11/23/18 09:20 Active Head wo Cont [CT] Stat Exams 11/23/18 09:39 Stop Req CULTURE URINE [RM] Stat Lab 11/23/18 10:15 Ordered EKG 12 Lead [EK] Routine Ther 11/23/18 09:54 Ordered Labs: Laboratory Tests 11/23/18 11/23/18 11/23/18 Range/Units 09:30 09:41 09:41 WBC 7.6 (4.5-12.0) X10-3/uL RBC 3.06 L (3.23-5.20) x10(6)uL Hgb 9.5 L (11.5-15.5) g/dL Hct 28.6 L (30.0-51.3) % MCV 93.4 (80-96) fL MCH 31.0 (27.7-33.6) pg MCHC 33.2 (32.2-35.4) g/dL RDW 15.1 (11.5-15.5) % Plt Count 262 (125-369) X10(3)uL MPV 7.0 L (7.4-10.4) fL Neut % (Auto) 74.0 (46-82) % Lymph % (Auto) 12.7 L (13-37) % Moca % (Auto) 11.6 (4-12) % Eos % (Auto) 1 (1.0-5.0) % Baso % (Auto) 1 (0-2) % Neut # (Auto) 5.5 (1.6-8.3) # Lymph # (Auto) 1.0 (0.6-5.0) # Moca # (Auto) 0.9 (0.0-1.3) # Eos # (Auto) 0.1 (0.0-0.8) # Baso # (Auto) 0.1 (0.0-0.2) # Sodium 140 (135-145) mmol/L Potassium 3.9 (3.5-5.3) mmol/L Chloride 104 (100-110) mmol/L Carbon Dioxide 26 (21-32) mmol/L BUN 22 H (7-18) mg/dL Creatinine 0.7 (0.55-1.02) mg/dL Est Cr Clr Drug Dosing 52.58 mL/min Estimated GFR (MDRD) > 60 (>60) BUN/Creatinine Ratio 31.4 H (9-20) Glucose 115 (80-116) mg/dL Calcium 8.1 L (8.6-10.2) mg/dL Total Bilirubin 1.2 (0.1-1.3) mg/dL AST 26 H (5-25) IU/L ALT 25 (12-36) U/L Alkaline Phosphatase 227 H (56-112) IU/L Troponin I < 0.017 L (<0.017-0.056) ng/mL Total Protein 5.3 L (6.0-8.0) g/dL Albumin 2.6 L (3.2-4.6) g/dL Globulin 2.7 g/dL Albumin/Globulin Ratio 1.0 Urine Color (YELLOW) Urine Appearance (CLEAR) Urine pH (5.0-6.5) Ur Specific Laura (1.010-1.025) Urine Protein (NEGATIVE) mg/dL Urine Glucose (UA) (NORMAL) mg/dL Urine Ketones (NEGATIVE) mg/dL Urine Occult Blood (NEGATIVE) Urine Nitrite (NEGATIVE) Urine Bilirubin (NEGATIVE) Urine Urobilinogen (NEGATIVE) mg/dL Ur Leukocyte Esterase (NEGATIVE) Urine RBC (0-5) Urine WBC (0-5) Ur Squamous Epith Cells (NS,R,O) Urine Bacteria (NS) 11/23/18 Range/Units 09:51 WBC (4.5-12.0) X10-3/uL RBC (3.23-5.20) x10(6)uL Hgb (11.5-15.5) g/dL Hct (30.0-51.3) % MCV (80-96) fL MCH (27.7-33.6) pg MCHC (32.2-35.4) g/dL RDW (11.5-15.5) % Plt Count (125-369) X10(3)uL MPV (7.4-10.4) fL Neut % (Auto) (46-82) % Lymph % (Auto) (13-37) % Moca % (Auto) (4-12) % Eos % (Auto) (1.0-5.0) % Baso % (Auto) (0-2) % Neut # (Auto) (1.6-8.3) # Lymph # (Auto) (0.6-5.0) # Moca # (Auto) (0.0-1.3) # Eos # (Auto) (0.0-0.8) # Baso # (Auto) (0.0-0.2) # Sodium (135-145) mmol/L Potassium (3.5-5.3) mmol/L Chloride (100-110) mmol/L Carbon Dioxide (21-32) mmol/L BUN (7-18) mg/dL Creatinine (0.55-1.02) mg/dL Est Cr Clr Drug Dosing mL/min Estimated GFR (MDRD) (>60) BUN/Creatinine Ratio (9-20) Glucose (80-116) mg/dL Calcium (8.6-10.2) mg/dL Total Bilirubin (0.1-1.3) mg/dL AST (5-25) IU/L ALT (12-36) U/L Alkaline Phosphatase (56-112) IU/L Troponin I (<0.017-0.056) ng/mL Total Protein (6.0-8.0) g/dL Albumin (3.2-4.6) g/dL Globulin g/dL Albumin/Globulin Ratio Urine Color Yellow (YELLOW) Urine Appearance Clear (CLEAR) Urine pH 5.0 (5.0-6.5) Ur Specific Laura 1.015 (1.010-1.025) Urine Protein Negative (NEGATIVE) mg/dL Urine Glucose (UA) Normal (NORMAL) mg/dL Urine Ketones Negative (NEGATIVE) mg/dL Urine Occult Blood Moderate H (NEGATIVE) Urine Nitrite Negative (NEGATIVE) Urine Bilirubin Small H (NEGATIVE) Urine Urobilinogen Normal (NEGATIVE) mg/dL Ur Leukocyte Esterase Negative (NEGATIVE) Urine RBC 0-5 (0-5) Urine WBC 0-5 (0-5) Ur Squamous Epith Cells Few H (NS,R,O) Urine Bacteria Moderate H (NS) Meds: Medications Discontinued Medications Generic Name Dose Route Start Last Admin Trade Name Kanika PRN Reason Stop Dose Admin Morphine Sulfate 4 mg 11/23/18 10:34 11/23/18 10:46 Morphine SUBCUT 11/23/18 10:35 4 mg .ONCE ONE Administration Morphine Sulfate Confirm 11/23/18 10:41 Morphine Administered 11/23/18 10:42 Dose 4 mg .ROUTE .STK-MED ONE - Re-Assessments/Exams Free Text/Narrative Re-Assessment/Exam: 11/23/18 10:59 Dr. Vaughn agrees to admit patient to observation. Departure - Departure Time of Disposition: 11:00 Disposition: Refer to Observation Condition: Fair Clinical Impression: Altered level of consciousness Pelvis fracture Qualifiers: Encounter type: subsequent encounter Pelvic bone location: pubis Sublocation of pubis: other portion of pubis Fracture type: closed Laterality: unspecified laterality Fracture healing: with routine healing Qualified Code(s): S32.599D - Other specified fracture of unspecified pubis, subsequent encounter for fracture with routine healing - Discharge Information Referrals: Lonnie Napier MD [Primary Care Provider] - Forms: ED Department Discharge - My Orders Last 24 Hours: My Active Orders 11/23/18 09:20 Urinary Catheter Assessment [RC] QSHIFT 11/23/18 09:30 Gibbs Catheter Insertion [Insert Urinary Catheter] [OM.PC] Q24H 11/23/18 09:39 Head wo Cont [CT] Stat 11/23/18 09:54 EKG Documentation Completion [RC] ASDIRECTED EKG 12 Lead [EK] Routine 11/23/18 10:15 CULTURE URINE [RM] Stat - Assessment/Plan Last 24 Hours: My Active Orders 11/23/18 09:20 Urinary Catheter Assessment [RC] QSHIFT 11/23/18 09:30 Gibbs Catheter Insertion [Insert Urinary Catheter] [OM.PC] Q24H 11/23/18 09:39 Head wo Cont [CT] Stat 11/23/18 09:54 EKG Documentation Completion [RC] ASDIRECTED EKG 12 Lead [EK] Routine 11/23/18 10:15 CULTURE URINE [RM] Stat
[2018-11-23] MEDS ORDERED: Morphine 4 MG/ML Syringe SUBCUT ONE (10:34)
[2018-11-23] MEDS ORDERED: Sodium Chloride 0.9% 10 ML Syringe FLUSH PRN (11:36)
[2018-11-23] MEDS ORDERED: Morphine 4 MG/ML Syringe SUBCUT PRN (11:36)
[2018-11-23] MEDS: Enoxaparin 30 MG/0.3 ML Syringe SUBCUT SCH (14:31)
[2018-11-23] MEDS: hydrOXYzine HCl 25 MG Tab PO SCH ×2 (14:32→20:07)
[2018-11-23] MEDS: Acetaminophen 500 MG Tab PO SCH ×2 (14:32→20:08)
[2018-11-23] MEDS: traMADol 50 MG Tab PO SCH ×2 (15:32→20:07)
[2018-11-23] MEDS: Carboxymethylcellulose Sodium 0.5% Ophth Soln 15 ML Bottle EYEBOTH SCH (20:08)
[2018-11-23] MEDS: Mineral Oil/Petrolatum/Phenylephrine/Shark Liver Oil Oint 57 GM Tube RECTAL SCH (20:08)
[2018-11-23] MEDS: Calcitonin (Salmon) Nasal Spray 3.7 ML Bottle NAS SCH (20:08)
--- NOTE | 2018-11-23 20:18 | HP ---
ADMISSION DATE: 11/23/2018 CHIEF COMPLAINT: The patient with complicated pelvic pain. HISTORY OF PRESENT ILLNESS: Ashlyn Woodall is an 83-year-old female, recently a resident at [facility], more recently in swing bed at [facility]. Issues began in probably two months ago. Presented with some peculiar pelvic pain. Diagnostic sigmoidoscopy revealed no pathology. Persistent pain, discomfort, diagnostic studies, anemia, and more recently was hospitalized with pelvic pain. MRI revealed evidence of a pelvic fracture and hematoma, likely the reason for the low hemoglobin. She had a short-term acute care stay of 2 days' duration, was placed on fentanyl patch, discharged to [facility] swing bed. Side effects, problems, increasing confusion, agitation resulting revisit to [facility], and present hospitalization. MEDICATIONS: Daily medications include: 1. Metoprolol 50 mg 1/2 tablet one p.o. daily blood pressure and heart rate control. 2. Tylenol 1000 mg t.i.d. 3. Fentanyl patch 12 mcg q.72 hours. 4. Daily fiber. 5. Lidoderm patch. 6. Citalopram 20 mg one p.o. daily mood stabilizer. 7. P.r.n. Imodium. ALLERGIES: Allergic to Darvocet, morphine with confusion, and Percocet all with confusion. PAST MEDICAL HISTORY: Significant for: 1. Previous left femur fracture. 2. Open cholecystectomy. 3. Tonsillectomy and adenoidectomy. 4. Total abdominal hysterectomy, oophorectomy for benign disease. 5. Chronic illnesses include hyperlipidemia, hypertension, anxiety, and increasing memory issues. SOCIAL HISTORY: Resident of [facility] in [facility]. , appropriately retired. Nonsmoker. No alcohol. No illicit drug use. REVIEW OF SYSTEMS: Difficult to ascertain, but voices no particular complaints. Does wear glasses, hearing likely impaired. Bowels have been a little bit indifferent. No blood in stools. No blood in urine. No apparent chest pain or complicated cough. PHYSICAL EXAMINATION: VITAL SIGNS: Stable and documented per exam. GENERAL: Healthy, a bit withdrawn, agitated, a little bit distractible. HEENT: Reveal normal conjunctivae, bright tympanic membranes. Clear nasal discharge. Mouth and oropharynx clear. No intraoral lesions. NECK: Benign. Some palpable crepitations. CHEST: Clear all lung zavala. No adventitious sounds. HEART: No ectopy or murmur. BREASTS: Atrophic without masses. ABDOMEN: Benign. Well-healed surgical scars, right upper quadrant, right lower quadrant, and mid abdominal. PELVIC/RECTAL: Deferred. EXTREMITIES: Revealed moderate varicosities and venous stasis disease and palpable but diminished pulses. LABORATORY STUDIES: [facility] walk-in noted. ER lab includes hemoglobin 9.5, hematocrit 28.6, white count 7600, mildly elevated AST, mildly elevated alkaline phosphatase, and reduced protein. Urinalysis, moderate occult blood, culture fallow. MRI reviewed last week. ASSESSMENT: Complicated pelvic pain with marked agitation, maybe medication related. SECONDARY DIAGNOSIS: Please see above. PLAN: We will admit for observation care, pain control, morphine was given subcu, was switched to Ultram 50 mg p.o. t.i.d., 3000 mg in divided doses of Tylenol, complementary care and well being. /[id number] 2012 CALEB/YANET
[2018-11-24] MEDS: traMADol 50 MG Tab PO SCH ×4 (01:25→18:53)
[2018-11-24 08:14] LABS: IRON BIND.CAP.(TIBC) 135 ug/dL (250-450); IRON SATURATION 18 % (15-55); IRON, SERUM 24 ug/dL (27-139); UIBC 111 ug/dL (118-369)
--- NOTE | 2018-11-24 08:51 | PCM.PN ---
- General Info Date of Service: 11/24/18 Subjective Update: Ashlyn slept well, complains of no pain this morning. Functional Status: Reports: Pain Controlled - Review of Systems General: Reports: No Symptoms HEENT: Reports: No Symptoms Pulmonary: Reports: No Symptoms Cardiovascular: Reports: No Symptoms Gastrointestinal: Reports: No Symptoms Genitourinary: Reports: No Symptoms Musculoskeletal: Reports: No Symptoms - Patient Data Vitals - Most Recent: Last Vital Signs Temp 97.6 F 11/24/18 04:30 Pulse 72 11/24/18 04:30 Resp 18 11/24/18 04:30 BP 123/62 11/24/18 04:30 Pulse Ox 97 11/24/18 04:30 Weight - Most Recent: 60.963 kg Lab Results Last 24 Hours: Laboratory Results - last 24 hr 11/23/18 11/23/18 11/23/18 Range/Units 09:30 09:30 09:30 WBC (4.5-12.0) X10-3/uL RBC (3.23-5.20) x10(6)uL Hgb (11.5-15.5) g/dL Hct (30.0-51.3) % MCV (80-96) fL MCH (27.7-33.6) pg MCHC (32.2-35.4) g/dL RDW (11.5-15.5) % Plt Count (125-369) X10(3)uL MPV (7.4-10.4) fL Neut % (Auto) (46-82) % Lymph % (Auto) (13-37) % [place] % (Auto) (4-12) % Eos % (Auto) (1.0-5.0) % Baso % (Auto) (0-2) % Neut # (Auto) (1.6-8.3) # Lymph # (Auto) (0.6-5.0) # [place] # (Auto) (0.0-1.3) # Eos # (Auto) (0.0-0.8) # Baso # (Auto) (0.0-0.2) # Retic Count 2.5 (0.6-2.6) % Sodium (135-145) mmol/L Potassium (3.5-5.3) mmol/L Chloride (100-110) mmol/L Carbon Dioxide (21-32) mmol/L BUN (7-18) mg/dL Creatinine (0.55-1.02) mg/dL Est Cr Clr Drug Dosing mL/min Estimated GFR (MDRD) (>60) BUN/Creatinine Ratio (9-20) Glucose (80-116) mg/dL Calcium (8.6-10.2) mg/dL Iron 24 L (27-139) ug/dL TIBC 135 L (250-450) ug/dL Iron Saturation 18 (15-55) % Unsaturated IBC 111 L (118-369) ug/dL Total Bilirubin (0.1-1.3) mg/dL AST (5-25) IU/L ALT (12-36) U/L Alkaline Phosphatase (56-112) IU/L Troponin I < 0.017 L (<0.017-0.056) ng/mL Total Protein (6.0-8.0) g/dL Albumin (3.2-4.6) g/dL Globulin g/dL Albumin/Globulin Ratio Urine Color (YELLOW) Urine Appearance (CLEAR) Urine pH (5.0-6.5) Ur Specific [place] (1.010-1.025) Urine Protein (NEGATIVE) mg/dL Urine Glucose (UA) (NORMAL) mg/dL Urine Ketones (NEGATIVE) mg/dL Urine Occult Blood (NEGATIVE) Urine Nitrite (NEGATIVE) Urine Bilirubin (NEGATIVE) Urine Urobilinogen (NEGATIVE) mg/dL Ur Leukocyte Esterase (NEGATIVE) Urine RBC (0-5) Urine WBC (0-5) Ur Squamous Epith Cells (NS,R,O) Urine Bacteria (NS) 11/23/18 11/23/18 11/23/18 Range/Units 09:41 09:41 09:51 WBC 7.6 (4.5-12.0) X10-3/uL RBC 3.06 L (3.23-5.20) x10(6)uL Hgb 9.5 L (11.5-15.5) g/dL Hct 28.6 L (30.0-51.3) % MCV 93.4 (80-96) fL MCH 31.0 (27.7-33.6) pg MCHC 33.2 (32.2-35.4) g/dL RDW 15.1 (11.5-15.5) % Plt Count 262 (125-369) X10(3)uL MPV 7.0 L (7.4-10.4) fL Neut % (Auto) 74.0 (46-82) % Lymph % (Auto) 12.7 L (13-37) % [place] % (Auto) 11.6 (4-12) % Eos % (Auto) 1 (1.0-5.0) % Baso % (Auto) 1 (0-2) % Neut # (Auto) 5.5 (1.6-8.3) # Lymph # (Auto) 1.0 (0.6-5.0) # [place] # (Auto) 0.9 (0.0-1.3) # Eos # (Auto) 0.1 (0.0-0.8) # Baso # (Auto) 0.1 (0.0-0.2) # Retic Count (0.6-2.6) % Sodium 140 (135-145) mmol/L Potassium 3.9 (3.5-5.3) mmol/L Chloride 104 (100-110) mmol/L Carbon Dioxide 26 (21-32) mmol/L BUN 22 H (7-18) mg/dL Creatinine 0.7 (0.55-1.02) mg/dL Est Cr Clr Drug Dosing 52.58 mL/min Estimated GFR (MDRD) > 60 (>60) BUN/Creatinine Ratio 31.4 H (9-20) Glucose 115 (80-116) mg/dL Calcium 8.1 L (8.6-10.2) mg/dL Iron (27-139) ug/dL TIBC (250-450) ug/dL Iron Saturation (15-55) % Unsaturated IBC (118-369) ug/dL Total Bilirubin 1.2 (0.1-1.3) mg/dL AST 26 H (5-25) IU/L ALT 25 (12-36) U/L Alkaline Phosphatase 227 H (56-112) IU/L Troponin I (<0.017-0.056) ng/mL Total Protein 5.3 L (6.0-8.0) g/dL Albumin 2.6 L (3.2-4.6) g/dL Globulin 2.7 g/dL Albumin/Globulin Ratio 1.0 Urine Color Yellow (YELLOW) Urine Appearance Clear (CLEAR) Urine pH 5.0 (5.0-6.5) Ur Specific [place] 1.015 (1.010-1.025) Urine Protein Negative (NEGATIVE) mg/dL Urine Glucose (UA) Normal (NORMAL) mg/dL Urine Ketones Negative (NEGATIVE) mg/dL Urine Occult Blood Moderate H (NEGATIVE) Urine Nitrite Negative (NEGATIVE) Urine Bilirubin Small H (NEGATIVE) Urine Urobilinogen Normal (NEGATIVE) mg/dL Ur Leukocyte Esterase Negative (NEGATIVE) Urine RBC 0-5 (0-5) Urine WBC 0-5 (0-5) Ur Squamous Epith Cells Few H (NS,R,O) Urine Bacteria Moderate H (NS) Donald Results Last 24 Hours: Microbiology 11/23/18 09:51 Urine Culture - Preliminary Urine, Catheterized No Growth Med Orders - Current: Current Medications Acetaminophen (Tylenol Extra Strength) 1,000 mg PO TID [facility] Last Admin: 11/23/18 20:08 Dose: 1,000 mg Artificial Tears (Refresh Tears 0.5%) 0 ml EYEBOTH BID [facility] Last Admin: 11/23/18 20:08 Dose: 1 drop Calcitonin [place] (Miacalcin Nasal [place]) 0 ml DENNISE BEDTIME [facility] Last Admin: 11/23/18 20:08 Dose: 1 spray Calcium Carbonate/Glycine (Oyster Shell Calcium) 500 mg PO BID [facility] Cholecalciferol (Vitamin D3) 1,000 units PO DAILY [facility] Enoxaparin Sodium (Lovenox) 30 mg SUBCUT Q24H [facility] Last Admin: 11/23/18 14:31 Dose: 30 mg Hydroxyzine HCl (Atarax) 25 mg PO TID [facility] Last Admin: 11/23/18 20:07 Dose: 25 mg Metoprolol Succinate (Toprol Xl) 25 mg PO DAILY [facility] Morphine Sulfate (Morphine) 4 mg SUBCUT Q6H PRN PRN Reason: Pain Phenyleph/Shark Oil/Min Oil/Petrol (Preparation H Oint) 0 gm RECTAL BID [facility] Last Admin: 11/23/18 20:08 Dose: 1 applic Potassium Chloride (Klor-Con 10) 10 meq PO DAILY [facility] Psyllium Husk (Metamucil Sugar Free) 1 pkt PO DAILY [facility] Sodium Chloride (Saline Flush) 10 ml FLUSH ASDIRECTED PRN PRN Reason: Keep Vein Open Tramadol HCl (Ultram) 50 mg PO Q6H [facility] Last Admin: 11/24/18 06:30 Dose: 50 mg Discontinued Medications Morphine Sulfate (Morphine) 4 mg SUBCUT .ONCE ONE Stop: 11/23/18 10:35 Last Admin: 11/23/18 10:46 Dose: 4 mg Morphine Sulfate (Morphine) Confirm Administered Dose 4 mg .ROUTE .STK-MED ONE Stop: 11/23/18 10:42 Last Admin: 11/23/18 12:38 Dose: Not Given Non-Formulary Medication (Citalopram Hydrobromide [Celexa]) 20 mg PO DAILY [facility] - Exam General: Alert. No: Oriented HEENT: Pupils Equal Neck: Supple Lungs: Clear to Auscultation Cardiovascular: Regular Rate Neurological: No New Focal Deficit Psy/Mental Status: Alert, Normal Affect - Problem List & Annotations (1) Pelvis fracture SNOMED Code(s): 77708388 Code(s): S32.9XXA - FRACTURE OF UNSP PARTS OF LUMBOSACRAL SPINE AND PELVIS, INIT Status: Acute Current Visit: Yes Qualifiers: Encounter type: subsequent encounter Pelvic bone location: pubis Sublocation of pubis: other portion of pubis Fracture type: closed Laterality: unspecified laterality Fracture healing: with routine healing Qualified Code(s): S32.599D - Other specified fracture of unspecified pubis, subsequent encounter for fracture with routine healing (2) Altered mental state SNOMED Code(s): 085942949 Code(s): R41.82 - ALTERED MENTAL STATUS, UNSPECIFIED Status: Acute Current Visit: No Qualifiers: Altered mental status type: unspecified Qualified Code(s): R41.82 - Altered mental status, unspecified - Problem List Review Problem List Initiated/Reviewed/Updated: Yes - Plan Plan:: Pain is controlled on tramadol when necessary. The confusion seems to improved. She's had an ultrasound of the right upper quadrant that is negative. I recommend discharge back to the senior living on Ultram when necessary,
[2018-11-24] MEDS ORDERED: Non-Formulary Medication 1 Each (Citalopram Hydrobromide [Celexa] 20 MG) PO SCH (09:00)
[2018-11-24] MEDS: hydrOXYzine HCl 25 MG Tab PO SCH ×3 (09:12→20:40)
[2018-11-24] MEDS: Potassium Chloride 10 MEQ Tab.ER PO SCH (09:12)
[2018-11-24] MEDS: Carboxymethylcellulose Sodium 0.5% Ophth Soln 15 ML Bottle EYEBOTH SCH ×2 (09:13→20:39)
[2018-11-24] MEDS: Calcium Carbonate 500 MG Tablet PO SCH ×2 (09:13→20:40)
[2018-11-24] MEDS: Psyllium Husk Powder Sugar Free 5.85 GM Packet PO SCH (09:13)
[2018-11-24] MEDS: Mineral Oil/Petrolatum/Phenylephrine/Shark Liver Oil Oint 57 GM Tube RECTAL SCH ×2 (09:14→20:57)
[2018-11-24] MEDS: Acetaminophen 500 MG Tab PO SCH ×3 (09:15→20:40)
[2018-11-24] MEDS: Metoprolol Succinate 25 MG Tab.ER PO SCH (09:15)
[2018-11-24] MEDS: Cholecalciferol (Vitamin D3) 1,000 Unit Tab PO SCH (09:16)
[2018-11-24] MEDS ORDERED: Bisacodyl 5 MG Tab PO PRN (12:34)
[2018-11-24] MEDS ORDERED: Magnesium Hydroxide 400 MG/5 ML Susp 30 ML Cup PO PRN (12:35)
[2018-11-24] MEDS: Enoxaparin 30 MG/0.3 ML Syringe SUBCUT SCH (12:56)
--- NOTE | 2018-11-24 13:43 | US ---
INDICATION: Elevated liver enzymes. ABDOMINAL ULTRASOUND, COMPLETE: Multiple ultrasonic images were obtained 11/24 - comparison CT from 11/15/18. The liver had a somewhat heterogeneous appearance. Its density, however, appears to be fairly normal, and no focal lesions are identified. No intrahepatic ductal dilatation was seen. Common bile duct was normal in caliber for post cholecystectomy patient at 6.9 mm. The spleen appeared normal, measuring 10.5 x 2.9 cm. Pancreas not adequately visualized due to intestinal gas. The aorta is normal in caliber. The right kidney measured 9.6 x 4 x 4 cm with fairly normal appearance. The left kidney measured approximately 8.3 x 4.1 x 3.4 cm and included a partially exophytic cyst splaying the renal parenchyma of the upper middle pole , which measured approximately 2.3 cm maximally. The left kidney was otherwise unremarkable. No definite obstructive uropathy was seen. The IVC was phasic. No additional mass lesions or free fluid collections were identified. IMPRESSION: Except for a somewhat heterogeneous appearance of the liver of questionable significance, since its overall density appears to be normal, essentially normal liver and biliary tree. No focal liver lesions identified. 2. Common bile duct normal in caliber for post cholecystectomy. 3. Probable simple cyst of the upper middle pole of the left kidney, splaying the renal parenchyma somewhat. 4. No evidence of abdominal aortic aneurysm. 5. Pancreas not adequately visualized due to intestinal gas. MTDD
[2018-11-24] MEDS: Calcitonin (Salmon) Nasal Spray 3.7 ML Bottle NAS SCH (20:38)
[2018-11-25] MEDS: traMADol 50 MG Tab PO SCH ×3 (01:29→20:59)
[2018-11-25] MEDS: hydrOXYzine HCl 25 MG Tab PO SCH ×3 (08:32→20:53)
[2018-11-25] MEDS: Metoprolol Succinate 25 MG Tab.ER PO SCH (08:33)
[2018-11-25] MEDS: Mineral Oil/Petrolatum/Phenylephrine/Shark Liver Oil Oint 57 GM Tube RECTAL SCH ×2 (08:33→20:55)
[2018-11-25] MEDS: Psyllium Husk Powder Sugar Free 5.85 GM Packet PO SCH (08:33)
[2018-11-25] MEDS: Carboxymethylcellulose Sodium 0.5% Ophth Soln 15 ML Bottle EYEBOTH SCH ×2 (08:33→21:04)
[2018-11-25] MEDS: Calcium Carbonate 500 MG Tablet PO SCH ×2 (08:33→20:54)
[2018-11-25] MEDS: Acetaminophen 500 MG Tab PO SCH ×3 (08:34→20:54)
[2018-11-25] MEDS: Cholecalciferol (Vitamin D3) 1,000 Unit Tab PO SCH (08:34)
[2018-11-25] MEDS: Potassium Chloride 10 MEQ Tab.ER PO SCH (08:34)
--- NOTE | 2018-11-25 09:31 | PCM.PN ---
- General Info Date of Service: 11/25/18 Subjective Update: Doing well. - Review of Systems General: Reports: No Symptoms HEENT: Reports: No Symptoms Pulmonary: Reports: No Symptoms Cardiovascular: Reports: No Symptoms Gastrointestinal: Reports: No Symptoms - Patient Data Vitals - Most Recent: Last Vital Signs Temp 98.4 F 11/25/18 05:00 Pulse 76 11/25/18 08:33 Resp 16 11/25/18 05:00 BP 123/64 11/25/18 08:33 Pulse Ox 97 11/25/18 05:00 Weight - Most Recent: 60.963 kg Donald Results Last 24 Hours: Microbiology 11/23/18 09:51 Urine Culture - Final Urine, Catheterized NO GROWTH AFTER 2 DAYS Med Orders - Current: Current Medications Acetaminophen (Tylenol Extra Strength) 1,000 mg PO TID [facility] Last Admin: 11/25/18 08:34 Dose: 1,000 mg Artificial Tears (Refresh Tears 0.5%) 0 ml EYEBOTH BID [facility] Last Admin: 11/25/18 08:33 Dose: 1 drop Bisacodyl (Dulcolax) 5 mg PO DAILY PRN PRN Reason: Constipation Calcitonin [place] (Miacalcin Nasal [place]) 0 ml DENNISE BEDTIME [facility] Last Admin: 11/24/18 20:38 Dose: 1 spray Calcium Carbonate/Glycine (Oyster Shell Calcium) 500 mg PO BID [facility] Last Admin: 11/25/18 08:33 Dose: 500 mg Cholecalciferol (Vitamin D3) 1,000 units PO DAILY [facility] Last Admin: 11/25/18 08:34 Dose: 1,000 units Enoxaparin Sodium (Lovenox) 30 mg SUBCUT Q24H [facility] Last Admin: 11/24/18 12:56 Dose: 30 mg Hydroxyzine HCl (Atarax) 25 mg PO TID [facility] Last Admin: 11/25/18 08:32 Dose: 25 mg Magnesium Hydroxide (Milk Of Magnesia) 30 ml PO DAILY PRN PRN Reason: Constipation Metoprolol Succinate (Toprol Xl) 25 mg PO DAILY [facility] Last Admin: 11/25/18 08:33 Dose: 25 mg Morphine Sulfate (Morphine) 4 mg SUBCUT Q6H PRN PRN Reason: Pain Phenyleph/Shark Oil/Min Oil/Petrol (Preparation H Oint) 0 gm RECTAL BID [facility] Last Admin: 11/25/18 08:33 Dose: 1 applic Potassium Chloride (Klor-Con 10) 10 meq PO DAILY [facility] Last Admin: 11/25/18 08:34 Dose: 10 meq Psyllium Husk (Metamucil Sugar Free) 1 pkt PO DAILY [facility] Last Admin: 11/25/18 08:33 Dose: 1 pkt Sodium Chloride (Saline Flush) 10 ml FLUSH ASDIRECTED PRN PRN Reason: Keep Vein Open Tramadol HCl (Ultram) 50 mg PO Q6H [facility] Last Admin: 11/25/18 06:23 Dose: 50 mg Discontinued Medications Morphine Sulfate (Morphine) 4 mg SUBCUT .ONCE ONE Stop: 11/23/18 10:35 Last Admin: 11/23/18 10:46 Dose: 4 mg Morphine Sulfate (Morphine) Confirm Administered Dose 4 mg .ROUTE .STK-MED ONE Stop: 11/23/18 10:42 Last Admin: 11/23/18 12:38 Dose: Not Given Non-Formulary Medication (Citalopram Hydrobromide [Celexa]) 20 mg PO DAILY [facility] - Exam General: Alert, Oriented, Cooperative HEENT: Pupils Equal Neck: Supple Lungs: Clear to Auscultation Cardiovascular: Regular Rate Skin: Warm Psy/Mental Status: Alert - Problem List & Annotations (1) Pelvis fracture SNOMED Code(s): 73143072 Code(s): S32.9XXA - FRACTURE OF UNSP PARTS OF LUMBOSACRAL SPINE AND PELVIS, INIT Status: Acute Current Visit: Yes Qualifiers: Encounter type: subsequent encounter Pelvic bone location: pubis Sublocation of pubis: other portion of pubis Fracture type: closed Laterality: unspecified laterality Fracture healing: with routine healing Qualified Code(s): S32.599D - Other specified fracture of unspecified pubis, subsequent encounter for fracture with routine healing (2) Altered mental state SNOMED Code(s): 463053800 Code(s): R41.82 - ALTERED MENTAL STATUS, UNSPECIFIED Status: Acute Current Visit: No Qualifiers: Altered mental status type: unspecified Qualified Code(s): R41.82 - Altered mental status, unspecified - Problem List Review Problem List Initiated/Reviewed/Updated: Yes - My Orders Last 24 Hours: My Active Orders 11/24/18 12:34 Bisacodyl [Dulcolax] 5 mg PO DAILY PRN 11/24/18 12:35 Magnesium Hydroxide [Milk of Magnesia] 30 ml PO DAILY PRN - Plan Plan:: Pain is controlled on tramadol when necessary. The confusion seems to have improved.PT/OT.Possible SB tomorrow.
[2018-11-25] MEDS: Enoxaparin 30 MG/0.3 ML Syringe SUBCUT SCH (13:39)
[2018-11-25] MEDS: Calcitonin (Salmon) Nasal Spray 3.7 ML Bottle NAS SCH (20:53)
--- NOTE | 2018-11-26 08:38 | PCM.PN ---
- General Info Date of Service: 11/26/18 Subjective Update: She slept well.She complains of feeling lonely.Wants to go home Functional Status: Reports: Tolerating Diet - Review of Systems General: Reports: No Symptoms HEENT: Reports: No Symptoms Pulmonary: Reports: No Symptoms, Sputum Gastrointestinal: Reports: No Symptoms Genitourinary: Reports: No Symptoms - Patient Data Vitals - Most Recent: Last Vital Signs Temp 98.4 F 11/26/18 05:10 Pulse 82 11/26/18 05:10 Resp 16 11/26/18 05:10 BP 154/71 H 11/26/18 05:10 Pulse Ox 99 11/26/18 05:10 Weight - Most Recent: 60.963 kg I&O - Last 24 Hours: Intake & Output 11/25/18 11/26/18 11/26/18 22:59 06:59 14:59 Intake Total 50 Output Total 0 Balance 50 Donald Results Last 24 Hours: Microbiology 11/23/18 09:51 Urine Culture - Final Urine, Catheterized NO GROWTH AFTER 2 DAYS Med Orders - Current: Current Medications Acetaminophen (Tylenol Extra Strength) 1,000 mg PO TID [facility] Last Admin: 11/25/18 20:54 Dose: 1,000 mg Artificial Tears (Refresh Tears 0.5%) 0 ml EYEBOTH BID [facility] Last Admin: 11/25/18 21:04 Dose: 1 drop Bisacodyl (Dulcolax) 5 mg PO DAILY PRN PRN Reason: Constipation Calcitonin [place] (Miacalcin Nasal [place]) 0 ml DENNISE BEDTIME [facility] Last Admin: 11/25/18 20:53 Dose: 1 spray Calcium Carbonate/Glycine (Oyster Shell Calcium) 500 mg PO BID [facility] Last Admin: 11/25/18 20:54 Dose: 500 mg Cholecalciferol (Vitamin D3) 1,000 units PO DAILY [facility] Last Admin: 11/25/18 08:34 Dose: 1,000 units Enoxaparin Sodium (Lovenox) 30 mg SUBCUT Q24H [facility] Last Admin: 11/25/18 13:39 Dose: 30 mg Hydroxyzine HCl (Atarax) 25 mg PO TID [facility] Last Admin: 11/25/18 20:53 Dose: 25 mg Magnesium Hydroxide (Milk Of Magnesia) 30 ml PO DAILY PRN PRN Reason: Constipation Metoprolol Succinate (Toprol Xl) 25 mg PO DAILY [facility] Last Admin: 11/25/18 08:33 Dose: 25 mg Morphine Sulfate (Morphine) 4 mg SUBCUT Q6H PRN PRN Reason: Pain Phenyleph/Shark Oil/Min Oil/Petrol (Preparation H Oint) 0 gm RECTAL BID [facility] Last Admin: 11/25/18 20:55 Dose: 1 applic Potassium Chloride (Klor-Con 10) 10 meq PO DAILY [facility] Last Admin: 11/25/18 08:34 Dose: 10 meq Psyllium Husk (Metamucil Sugar Free) 1 pkt PO DAILY [facility] Last Admin: 11/25/18 08:33 Dose: 1 pkt Sodium Chloride (Saline Flush) 10 ml FLUSH ASDIRECTED PRN PRN Reason: Keep Vein Open Tramadol HCl (Ultram) 50 mg PO BID [facility] Last Admin: 11/25/18 20:59 Dose: 50 mg Discontinued Medications Morphine Sulfate (Morphine) 4 mg SUBCUT .ONCE ONE Stop: 11/23/18 10:35 Last Admin: 11/23/18 10:46 Dose: 4 mg Morphine Sulfate (Morphine) Confirm Administered Dose 4 mg .ROUTE .STK-MED ONE Stop: 11/23/18 10:42 Last Admin: 11/23/18 12:38 Dose: Not Given Non-Formulary Medication (Citalopram Hydrobromide [Celexa]) 20 mg PO DAILY [facility] Tramadol HCl (Ultram) 50 mg PO Q6H [facility] Last Admin: 11/25/18 06:23 Dose: 50 mg - Exam General: Alert HEENT: Pupils Equal Neck: Supple Lungs: Clear to Auscultation Psy/Mental Status: Alert, Agitated - Problem List & Annotations (1) Pelvis fracture SNOMED Code(s): 94453358 Code(s): S32.9XXA - FRACTURE OF UNSP PARTS OF LUMBOSACRAL SPINE AND PELVIS, INIT Status: Acute Current Visit: Yes Qualifiers: Encounter type: subsequent encounter Pelvic bone location: pubis Sublocation of pubis: other portion of pubis Fracture type: closed Laterality: unspecified laterality Fracture healing: with routine healing Qualified Code(s): S32.599D - Other specified fracture of unspecified pubis, subsequent encounter for fracture with routine healing (2) Altered mental state SNOMED Code(s): 971190658 Code(s): R41.82 - ALTERED MENTAL STATUS, UNSPECIFIED Status: Acute Current Visit: No Qualifiers: Altered mental status type: unspecified Qualified Code(s): R41.82 - Altered mental status, unspecified - Problem List Review Problem List Initiated/Reviewed/Updated: Yes - My Orders Last 24 Hours: My Active Orders 11/25/18 21:00 traMADol [Ultram] 50 mg PO BID - Plan Plan:: Possibly send to swing bed today.
[2018-11-26] MEDS: Cholecalciferol (Vitamin D3) 1,000 Unit Tab PO SCH (08:56)
[2018-11-26] MEDS: Metoprolol Succinate 25 MG Tab.ER PO SCH (08:56)
[2018-11-26] MEDS: hydrOXYzine HCl 25 MG Tab PO SCH (08:57)
[2018-11-26] MEDS: Acetaminophen 500 MG Tab PO SCH (08:57)
[2018-11-26] MEDS: Psyllium Husk Powder Sugar Free 5.85 GM Packet PO SCH (08:57)
[2018-11-26] MEDS: Calcium Carbonate 500 MG Tablet PO SCH (08:57)
[2018-11-26] MEDS: Potassium Chloride 10 MEQ Tab.ER PO SCH (08:57)
[2018-11-26] MEDS: Carboxymethylcellulose Sodium 0.5% Ophth Soln 15 ML Bottle EYEBOTH SCH (08:58)
[2018-11-26] MEDS: Mineral Oil/Petrolatum/Phenylephrine/Shark Liver Oil Oint 57 GM Tube RECTAL SCH (08:58)
[2018-11-26] MEDS: traMADol 50 MG Tab PO SCH (09:01)
[2018-11-26 09:02] VITALS: BP 121/56
--- NOTE | 2018-11-29 07:35 | DISCH ---
DISCHARGE DATE: 11/26/2018 REASON FOR ADMISSION: 1. Delirium. 2. Pelvic fractures. 3. Osteoporotic spine fractures. 4. History of anxiety. 5. Hypertension. 6. Mild cognitive dysfunction. DISCHARGE DIAGNOSES: 1. Delirium. 2. Pelvic fractures. 3. Osteoporotic spine fractures. 4. History of anxiety. 5. Hypertension. 6. Mild cognitive dysfunction. BRIEF HISTORY: This is a pleasant 83-year-old female, who was brought in from [facility] with agitation, delirium, thought to be due to fentanyl. She has a history of pubic rami fractures that were noted recently, along with spine fractures, thought to be due to osteoporosis compression type. She also has a history of anxiety, hypertension, and mild cognitive dysfunction. This necessitated stoppage of the Duragesic patch, and she was placed on tramadol. The delirium improved, but she still needs help with activities of daily living because of the pubic rami fractures and the compression fractures. She is being discharged today to swing bed for rehab and then determination of disposition afterwards. DISCHARGE MEDICATIONS: She will go home on: 1. Tramadol 50 mg b.i.d. 2. Acetaminophen 1000 mg t.i.d. 3. Calcitonin 1 spray at bedtime. 4. Calcium carbonate. 5. Vitamin D3, 1 tab b.i.d. 6. Calcium carbonate 500 mg b.i.d. 7. Hydroxyzine 25 mg t.i.d. 8. Metoprolol 25 mg a day. 9. Metamucil powder. 10.Citalopram 20 mg a day. 11.Ibuprofen 400 mg t.i.d. and as needed. FOLLOWUP: We will continue the swing bed rehab with physical therapy and then from their discuss disposition afterwards, whether she is able to return to home safely. /[id number] SURESH/YANET
== END 2018-11-26 09:45 | disposition swing bed (61) | DRG 897 ==
LOC: FB.ED 08:59 → FB.MS 11:02 → OBSVTOIN 12:45 → FB.MS 12:45
PROVIDERS: ADMIT Family Medicine; ATTEND Family Medicine
DX: R41.0 Disorientation, unspecified (principal); F11.921 Opioid use, unspecified with intoxication delirium; R10.2 Pelvic and perineal pain; I10 Essential (primary) hypertension; Z66 Do not resuscitate; S32.599D Other specified fracture of unspecified pubis, subsequent encounter for fracture with routine healing; M80.08XD Age-related osteoporosis with current pathological fracture, vertebra(e), subsequent encounter for fracture with routine healing; R41.82 Altered mental status, unspecified; R45.1 Restlessness and agitation; F03.90 Unspecified dementia, unspecified severity, without behavioral disturbance, psychotic disturbance, mood disturbance, and anxiety; H54.7 Unspecified visual loss; H35.30 Unspecified macular degeneration; K58.9 Irritable bowel syndrome, unspecified; Z87.440 Personal history of urinary (tract) infections; E78.5 Hyperlipidemia, unspecified; F41.9 Anxiety disorder, unspecified; Z88.5 Allergy status to narcotic agent; Z96.649 Presence of unspecified artificial hip joint; Z90.710 Acquired absence of both cervix and uterus
CPT/HCPCS: 36415; 80053; 81001; 83540; 83550; 84484; 85025; 85045; 87086; 96372; 99285; J2270; 76700; 97110-GP; 97161-GP; A9270-GY; J1650

== ENCOUNTER 2018-11-26 09:15 | Inpatient (IN) | payer MEDICARE, OTHER ==
[2018-11-26] MEDS ORDERED: Loperamide 2 MG Cap PO PRN (09:53)
--- NOTE | 2018-11-26 10:01 | PCM.HP ---
H&P History of Present Illness - General Date of Service: 11/26/18 Admit Problem/Dx: Admission Diagnosis/Problem Admission Diagnosis/Problem Compression fracture of lumbar spine Source of Information: Patient History Limitations: Reports: No Limitations - History of Present Illness Initial Comments - Free Text/Narative: Ashlyn is an 83-year-old female was admitted to the hospital because of delirium and pain in the pelvis and low back area. She had compression fractures,and and osteoporotic fractures the pubic rami and lumbar spine. She was admitted with delirium thought to be due to medication-Duragesic. The Duragesic patch was stopped she was then controlled on Tramadol and Vistaril .Symptoms improved, but she still needs help with activities of daily living and is being admitted to swing bed for the same. She has a history of hypertension,mild cognitive dysfunction and anxiety that are stable. - Related Data Allergies/Adverse Reactions: Allergies Allergy/AdvReac Type Severity Reaction Status Date / Time propoxyphene Allergy Other Verified 11/23/18 09:03 [From Darvocet-N] oxycodone HCl [From Percocet] AdvReac Intermediate Hallucinati Verified 09:03 ons Home Medications: Home Meds Acetaminophen [Tylenol Extra Strength] 1,000 mg PO TID 03/21/18 [History] Citalopram Hydrobromide [Celexa] 20 mg PO DAILY 03/21/18 [History] Carboxymethylcellulose Sodium [Refresh Tears 0.5%] 1 drop EYEBOTH BID 11/14/18 [ History] Loperamide HCl [Imodium A-D] 2 mg PO DAILY PRN 11/14/18 [History] Vit C/E/Zn/Coppr/Lutein/Zeaxan [Preservision Areds 2 Softgel] 1 cap PO BID 11/14 [History] Calcitonin ([place]) [Miacalcin Nasal [place]] 1 spray DENNIES BEDTIME #1 bottle [Rx] Cholecalciferol (Vitamin D3) [Vitamin D3] 1,000 units PO DAILY #60 tablet [Rx] Potassium Chloride [Klor-Con 10] 10 meq PO DAILY #30 tab.er 11/19/18 [Rx] Calcium Carbonate/Vitamin D3 [Calcium 600 + Vit D 200] 1 tab PO BID 11/23/18 [ History] Ibuprofen 400 mg PO TID PRN 11/23/18 [History] MO/Pet,Wh/Phenylephrine/Shk Lv [Preparation H Oint] 1 applic RECTAL BID [History] Metoprolol Succinate [Toprol XL] 25 mg PO DAILY 11/23/18 [History] Psyllium Husk (With Sugar) [Metamucil Powder] 1 tsp PO DAILY 11/23/18 [History] hydrOXYzine HCl [hydrOXYzine] 25 mg PO BID #60 tablet 11/26/18 [Rx] traMADol [Ultram] 50 mg PO BID #60 tablet 11/26/18 [Rx] Past Medical History HEENT History: Reports: Impaired Vision, Macular Degeneration Other HEENT History: wears glasses Cardiovascular History: Reports: Hypertension Other Cardiovascular History: information given by son does not know all of patients hx, patient is unable to answer is confused Respiratory History: Reports: None Gastrointestinal History: Reports: Hemorrhoids, Irritable Bowel Syndrome, Other (See Below) Other Gastrointestinal History: reported to have constipation Genitourinary History: Reports: UTI, Recurrent, Other (See Below) Other Genitourinary History: Acute cystitis 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: Musculoskeletal History: Reports: Arthritis, Osteoarthritis Other Musculoskeletal History: arthritis Neurological History: Reports: Cerebral Aneurysms Other Neuro History: trouble with memory Psychiatric History: Reports: Anxiety, Dementia Endocrine/Metabolic History: Reports: None Other Endocrine/Metabolic History: Hyponatremia, hyperlipidemia Hematologic History: Reports: None Dermatologic History: Reports: None - Infectious Disease History Infectious Disease History: Reports: Chicken Pox, Measles, Mumps Other Infectious Disease History: daughter unsure - Past Surgical History HEENT Surgical History: Reports: Cataract Surgery Cardiovascular Surgical History: Reports: None Respiratory Surgical History: Reports: None GI Surgical History: Reports: Cholecystectomy, Colonoscopy, Other (See Below) Other GI Surgeries/Procedures: sigmoidoscopy Female Surgical History: Reports: D&C, Hysterectomy Endocrine Surgical History: Reports: None Neurological Surgical History: Reports: Scoliosis Musculoskeletal Surgical History: Reports: Other (See Below) Other Musculoskeletal Surgeries/Procedures:: hip repair left done, fx wrist, collar bone Dermatological Surgical History: Reports: None Social & Family History - Family History Family Medical History: Noncontributory HEENT: Reports: None GI: Reports: None OBGYN: Reports: Other (See Below) Other OBGYN Family History: fibroids, hysterectomy Musculoskeletal: Reports: Other (See Below) Other Musculoskeletal Family History: scoliosis Psychiatric: Reports: Anxiety Endocrine/Metabolic: Reports: Diabetes, type II Oncologic: Reports: Lung - Caffeine Use Caffeine Use: Reports: Coffee, Soda, Tea H&P Review of Systems - Review of Systems: Review Of Systems: ROS reveals no pertinent complaints other than HPI. Exam - Exam Exam: See Below - Exam General: Alert HEENT: PERRLA Neck: Supple Lungs: Clear to Auscultation Cardiovascular: Regular Rate GI/Abdominal Exam: Normal Bowel Sounds Rectal (Female) Exam: Normal Exam Back Exam: Normal Inspection Extremities: Normal Inspection Neurological: Cranial Nerves Intact Psychiatric: Alert, Agitated - Problem List (1) Pelvis fracture SNOMED Code(s): 78105024 ICD Code: S32.9XXA - FRACTURE OF UNSP PARTS OF LUMBOSACRAL SPINE AND PELVIS, INIT Status: Acute Current Visit: No (2) Osteoporosis SNOMED Code(s): 03707618 ICD Code: M81.0 - AGE-RELATED OSTEOPOROSIS W/O CURRENT PATHOLOGICAL FRACTURE Status: Acute Current Visit: Yes Qualifiers: Encounter type: subsequent encounter (3) Compression fracture SNOMED Code(s): 449812911 ICD Code: SES7932 - Status: Acute Current Visit: Yes (4) Mild cognitive impairment SNOMED Code(s): 908027124 ICD Code: G31.84 - MILD COGNITIVE IMPAIRMENT, SO STATED Status: Acute Current Visit: Yes (5) DILLON (generalized anxiety disorder) SNOMED Code(s): 79418163 ICD Code: F41.1 - GENERALIZED ANXIETY DISORDER Status: Chronic Current Visit: Yes (6) HTN (hypertension) SNOMED Code(s): 09637833 ICD Code: I10 - ESSENTIAL (PRIMARY) HYPERTENSION Status: Chronic Current Visit: Yes Qualifiers: Hypertension type: essential hypertension Qualified Code(s): I10 - Essential (primary) hypertension Problem List Initiated/Reviewed/Updated: Yes Orders Last 24hrs: Active Orders 24 hr Category Date Time Status Patient Status [ADT] Routine ADT 11/26/18 09:51 Ordered Height and Weight [RC] WEEKLY Care 11/26/18 09:51 Ordered Oxygen Therapy [RC] PRN Care 11/26/18 09:51 Ordered Up With Assistance [RC] ASDIRECTED Care 11/26/18 09:51 Ordered VTE/DVT Education [RC] Per Unit Routine Care 11/26/18 09:51 Ordered Vital Signs [RC] PER UNIT ROUTINE Care 11/26/18 09:51 Ordered OT Evaluation and Treatment [CONS] Routine Cons 11/26/18 09:51 Ordered PT Evaluation and Treatment [CONS] Routine Cons 11/26/18 09:51 Ordered Regular Diet [DIET] Diet 11/26/18 Breakfast Ordered Acetaminophen [Tylenol Extra Strength] Med 11/26/18 14:00 Ordered 1,000 mg PO TID Calcitonin ([place]) [Miacalcin Nasal [place]] Med 11/26/18 21:00 Ordered 1 spray DENNISE BEDTIME Calcium Carbonate/Vitamin D3 [Calcium 600 + Vit D 200] Med 11/26/18 21:00 Ordered 1 tab PO BID Carboxymethylcellulose Sodium [Refresh Tears 0.5%] Med 11/26/18 21:00 Ordered 1 drop EYEBOTH BID Cholecalciferol (Vitamin D3) [Vitamin D3] Med 11/27/18 09:00 Ordered 1,000 units PO DAILY Citalopram Hydrobromide [Celexa] Med 11/27/18 09:00 Ordered 20 mg PO DAILY Ibuprofen [Motrin] Med 11/26/18 09:53 Ordered 400 mg PO TID PRN Loperamide [Imodium] Med 11/26/18 09:53 Ordered 2 mg PO DAILY PRN MO/Pet,Wh/Phenylephrine/Shk Lv [Preparation H Oint] Med 11/26/18 21:00 Ordered 1 applic RECTAL BID Metoprolol Succinate [Toprol XL] Med 11/27/18 09:00 Ordered 25 mg PO DAILY Potassium Chloride [Klor-Con 10] Med 11/27/18 09:00 Ordered 10 meq PO DAILY Psyllium Husk (With Sugar) [Metamucil Powder] Med 11/27/18 09:00 Ordered 1 tsp PO DAILY Vit C/E/Zn/Coppr/Lutein/Zeaxan [Preservision Areds 2 Med 11/26/18 21:00 Ordered Softgel] 1 cap PO BID hydrOXYzine HCl [Atarax] Med 11/26/18 21:00 Ordered 25 mg PO BID traMADol [Ultram] Med 11/26/18 21:00 Ordered 50 mg PO BID Resuscitation Status Routine Resus Stat 11/26/18 09:51 Ordered Medication Orders Acetaminophen (Tylenol Extra Strength) 1,000 mg PO TID REPLACED BY [facility] Artificial Tears (Refresh Tears 0.5%) ml EYEBOTH BID [facility] Calcitonin [place] (Miacalcin Nasal [place]) ml DENNISE BEDTIME [facility] Cholecalciferol (Vitamin D3) 1,000 units PO DAILY [facility] Hydroxyzine HCl (Atarax) 25 mg PO BID [facility] Ibuprofen (Motrin) 400 mg PO TID PRN PRN Reason: Pain Loperamide HCl (Imodium) 2 mg PO DAILY PRN PRN Reason: Loose stool Metoprolol Succinate (Toprol Xl) 25 mg PO DAILY REPLACED BY [facility] Non-Formulary Medication (Calcium Carbonate/Vitamin D3 [Calcium 600 + Vit D 200] ) 1 tab PO BID [facility] Non-Formulary Medication (Citalopram Hydrobromide [Celexa]) 20 mg PO DAILY [facility] Non-Formulary Medication (Psyllium Husk (With Sugar) [Metamucil Powder]) 1 tsp PO DAILY REPLACED BY [facility] Non-Formulary Medication (Vit C/E/Zn/Coppr/Lutein/Zeaxan [Preservision Areds 2 Softgel]) 1 cap PO BID [facility] Phenyleph/Shark Oil/Min Oil/Petrol (Preparation H Oint) gm RECTAL BID [facility] Potassium Chloride (Klor-Con 10) 10 meq PO DAILY [facility] Tramadol HCl (Ultram) 50 mg PO BID REPLACED BY [facility] Assessment/Plan Comment:: We will admit to swing bed, consult physical and occupational therapy. Continue pain control with tramadol & Vistaril. Treat osteoporosis with Miacalcin and vitamin D and calcium supplementation.
[2018-11-26] MEDS: Acetaminophen 500 MG Tab PO SCH ×2 (15:54→20:35)
[2018-11-26] MEDS: hydrOXYzine HCl 25 MG Tab PO SCH (20:31)
[2018-11-26] MEDS: Calcitonin (Salmon) Nasal Spray 3.7 ML Bottle NAS SCH (20:32)
[2018-11-26] MEDS: Lutein/Minerals/Vitamin C/Vitamin E Acetate Cap PO SCH (20:33)
[2018-11-26] MEDS: Mineral Oil/Petrolatum/Phenylephrine/Shark Liver Oil Oint 57 GM Tube RECTAL SCH (20:33)
[2018-11-26] MEDS: Calcium Carbonate 500 MG Tablet PO SCH (20:33)
[2018-11-26] MEDS: Carboxymethylcellulose Sodium 0.5% Ophth Soln 15 ML Bottle EYEBOTH SCH (20:34)
[2018-11-26] MEDS: traMADol 50 MG Tab PO SCH (20:38)
[2018-11-27] MEDS: traMADol 50 MG Tab PO SCH (08:40)
[2018-11-27] MEDS: Cholecalciferol (Vitamin D3) 1,000 Unit Tab PO SCH (08:41)
[2018-11-27] MEDS: Calcium Carbonate 500 MG Tablet PO SCH ×2 (08:42→20:17)
[2018-11-27] MEDS: hydrOXYzine HCl 25 MG Tab PO SCH ×2 (08:42→20:16)
[2018-11-27] MEDS: Metoprolol Succinate 25 MG Tab.ER PO SCH (08:42)
[2018-11-27] MEDS: Potassium Chloride 10 MEQ Tab.ER PO SCH (08:42)
[2018-11-27] MEDS: Citalopram 20 MG Tab PO SCH (08:42)
[2018-11-27] MEDS: Lutein/Minerals/Vitamin C/Vitamin E Acetate Cap PO SCH ×2 (08:43→20:17)
[2018-11-27] MEDS: Carboxymethylcellulose Sodium 0.5% Ophth Soln 15 ML Bottle EYEBOTH SCH ×2 (08:43→20:17)
[2018-11-27] MEDS: Psyllium Husk Powder Sugar Free 5.85 GM Packet PO SCH (08:43)
[2018-11-27] MEDS: Acetaminophen 500 MG Tab PO SCH ×3 (08:43→20:18)
[2018-11-27] MEDS: Mineral Oil/Petrolatum/Phenylephrine/Shark Liver Oil Oint 57 GM Tube RECTAL SCH (08:54)
[2018-11-27] MEDS ORDERED: traMADol 50 MG Tab PO PRN (09:33)
[2018-11-27] MEDS: Calcitonin (Salmon) Nasal Spray 3.7 ML Bottle NAS SCH (20:16)
[2018-11-28] MEDS: Cholecalciferol (Vitamin D3) 1,000 Unit Tab PO SCH (10:25)
[2018-11-28] MEDS: Calcium Carbonate 500 MG Tablet PO SCH ×2 (10:25→20:18)
[2018-11-28] MEDS: Metoprolol Succinate 25 MG Tab.ER PO SCH (10:25)
[2018-11-28] MEDS: Potassium Chloride 10 MEQ Tab.ER PO SCH (10:25)
[2018-11-28] MEDS: hydrOXYzine HCl 25 MG Tab PO SCH ×2 (10:25→20:17)
[2018-11-28] MEDS: Psyllium Husk Powder Sugar Free 5.85 GM Packet PO SCH (10:26)
[2018-11-28] MEDS: Carboxymethylcellulose Sodium 0.5% Ophth Soln 15 ML Bottle EYEBOTH SCH ×2 (10:26→20:18)
[2018-11-28] MEDS: Lutein/Minerals/Vitamin C/Vitamin E Acetate Cap PO SCH ×2 (10:26→20:18)
[2018-11-28] MEDS: Citalopram 20 MG Tab PO SCH (10:26)
[2018-11-28] MEDS: Acetaminophen 500 MG Tab PO SCH ×3 (10:27→20:19)
[2018-11-28] MEDS: Calcitonin (Salmon) Nasal Spray 3.7 ML Bottle NAS SCH (20:17)
[2018-11-29] MEDS: hydrOXYzine HCl 25 MG Tab PO SCH ×2 (08:25→21:28)
[2018-11-29] MEDS: Carboxymethylcellulose Sodium 0.5% Ophth Soln 15 ML Bottle EYEBOTH SCH ×2 (08:25→21:29)
[2018-11-29] MEDS: Metoprolol Succinate 25 MG Tab.ER PO SCH (08:25)
[2018-11-29] MEDS: Cholecalciferol (Vitamin D3) 1,000 Unit Tab PO SCH (08:25)
[2018-11-29] MEDS: Calcium Carbonate 500 MG Tablet PO SCH ×2 (08:25→21:29)
[2018-11-29] MEDS: Acetaminophen 500 MG Tab PO SCH ×3 (08:25→21:29)
[2018-11-29] MEDS: Lutein/Minerals/Vitamin C/Vitamin E Acetate Cap PO SCH ×2 (08:26→21:29)
[2018-11-29] MEDS: Potassium Chloride 10 MEQ Tab.ER PO SCH (08:26)
[2018-11-29] MEDS: Citalopram 20 MG Tab PO SCH (08:26)
[2018-11-29] MEDS: Psyllium Husk Powder Sugar Free 5.85 GM Packet PO SCH (08:26)
--- NOTE | 2018-11-29 15:09 | PN ---
DATE SEEN: 11/29/2018 SUBJECTIVE: Ashlyn Woodall is an 83-year-old female, swing bed. Two acute care hospital stays, increasing delirium and dementia, and a pelvic fracture. Present medications include ibuprofen 400 mg 1 p.o. t.i.d., Vistaril for anxiety, tramadol p.r.n., and citalopram on board. Radiographs: None recent. AP pelvis will be obtained. Had been at [facility], went to [facility] for swing bed. Acute care and swing bed to follow. LABORATORY STUDIES: None indicated. OBJECTIVE: VITAL SIGNS: 36.6, pulse 84, 124/59 is the blood pressure, 20 respiration, and 99 oxygen saturation. GENERAL: Appears comfortable. Bright, alert, awake. Confusion persists. NECK: Benign. Thyroid small. CHEST: Clear in all lung zavala. HEART: Occasional ectopy. Soft murmur. ABDOMEN: Benign. DATA: Radiographs of pelvis planned. ASSESSMENT: 1. Pelvic fracture, comminuted. 2. Progressive memory issues. PLAN: AP pelvis to be performed. Complementary care and well being, results to follow. /[id number] CALEB/YANET
[2018-11-29] MEDS: Calcitonin (Salmon) Nasal Spray 3.7 ML Bottle NAS SCH (21:28)
--- NOTE | 2018-11-30 08:00 | CR ---
INDICATION: Followup pelvic fracture. PELVIS: A single frontal view of the pelvis was obtained 11/29/18 and compared with 07/10/[address] scan of the pelvis and abdomen dated 11/15/18, again revealing comminuted fractures of the pubic symphysis bilaterally with distraction of the fracture fragments again noted. No interval progress in healing is seen. No definite new acute process was seen. Hip pinning is noted on the left. There is some minimal degenerative change at the right hip joint with the joint space well maintained and slight narrowing of the left hip joint suggested. Degenerative changes and disk disease are noted with scoliosis at the visualized lumbosacral spine. The sacroiliac joints appear to be fairly intact with some minimal degenerative changes, left greater than right. IMPRESSION: Probable insufficiency fractures of the pubic symphysis. Extensive comminution and distraction of fracture fragments is noted. No gross interval change in position or alignment of the distracted fracture fragments is noted, compared with CT from 11/15/18. [facility]
[2018-11-30] MEDS: Potassium Chloride 10 MEQ Tab.ER PO SCH (08:20)
[2018-11-30] MEDS: Lutein/Minerals/Vitamin C/Vitamin E Acetate Cap PO SCH ×2 (08:20→20:01)
[2018-11-30] MEDS: Calcium Carbonate 500 MG Tablet PO SCH ×2 (08:20→20:00)
[2018-11-30] MEDS: hydrOXYzine HCl 25 MG Tab PO SCH (08:20)
[2018-11-30] MEDS: Citalopram 20 MG Tab PO SCH (08:20)
[2018-11-30] MEDS: Carboxymethylcellulose Sodium 0.5% Ophth Soln 15 ML Bottle EYEBOTH SCH ×2 (08:21→20:00)
[2018-11-30] MEDS: Cholecalciferol (Vitamin D3) 1,000 Unit Tab PO SCH (08:21)
[2018-11-30] MEDS: Metoprolol Succinate 25 MG Tab.ER PO SCH (08:21)
[2018-11-30] MEDS: Psyllium Husk Powder Sugar Free 5.85 GM Packet PO SCH (08:21)
[2018-11-30] MEDS: Acetaminophen 500 MG Tab PO SCH ×3 (08:21→20:01)
[2018-11-30] MEDS: Ibuprofen 200 MG Tab PO PRN (10:12)
[2018-11-30] MEDS ORDERED: hydrOXYzine HCl 25 MG Tab PO PRN (10:20)
--- NOTE | 2018-11-30 13:03 | PN ---
DATE SEEN: 11/30/2018 HISTORY OF PRESENT ILLNESS: Ashlyn Woodall is an 83-year-old female, admitted with delirium, pelvic pain due to comminuted fracture, and increasingly difficult living situation. She has been on tramadol used infrequently, Vistaril used infrequently. Up ambulating and actually doing better in terms of general well being. Agitation much improved. Had been at [facility], [facility] staff feel that she is not a candidate to return to [facility] proper. Recent radiographs revealed persistent comminution, pubic symphysis bilaterally, with distractions noted. Appears to be doing well. Pain appears to be controlled. Discharge planning in order. LABORATORY STUDIES: None required. RADIOGRAPHS: Noted above. OBJECTIVE: VITAL SIGNS: 36.2, 86, 126/71, 16, and 98%. GENERAL: In good spirits, just finished walking in the solo with a walker. HEENT: Mouth and oropharynx clear. NECK: Benign. Thyroid small. CHEST: Clear in all lung zavala. HEART: No ectopy or murmur. PELVIC: Vague pelvic pain. IMPRESSION: 1. Improving delirium. 2. Pubic symphysis fracture in place. PLAN: We will switch from tramadol and Vistaril to Tylenol, complementary care and well being. Discharge planning in place. /[id number] CALEB/YANET
[2018-11-30] MEDS ORDERED: Acetaminophen 500 MG Tab PO SCH (14:00)
[2018-11-30] MEDS: Calcitonin (Salmon) Nasal Spray 3.7 ML Bottle NAS SCH (20:00)
[2018-12-01] MEDS: Acetaminophen 500 MG Tab PO SCH ×3 (09:19→20:16)
[2018-12-01] MEDS: Metoprolol Succinate 25 MG Tab.ER PO SCH (09:19)
[2018-12-01] MEDS: Psyllium Husk Powder Sugar Free 5.85 GM Packet PO SCH (09:19)
[2018-12-01] MEDS: Lutein/Minerals/Vitamin C/Vitamin E Acetate Cap PO SCH ×2 (09:20→20:16)
[2018-12-01] MEDS: Citalopram 20 MG Tab PO SCH (09:20)
[2018-12-01] MEDS: Carboxymethylcellulose Sodium 0.5% Ophth Soln 15 ML Bottle EYEBOTH SCH ×2 (09:20→20:16)
[2018-12-01] MEDS: Potassium Chloride 10 MEQ Tab.ER PO SCH (09:20)
[2018-12-01] MEDS: Calcium Carbonate 500 MG Tablet PO SCH ×2 (09:20→20:16)
[2018-12-01] MEDS: Cholecalciferol (Vitamin D3) 1,000 Unit Tab PO SCH (09:21)
[2018-12-01] MEDS: Ibuprofen 200 MG Tab PO PRN (10:33)
--- NOTE | 2018-12-01 13:42 | PN ---
DATE SEEN: 12/01/2018 SUBJECTIVE: Ashlyn Woodall is an 83-year-old female in swing bed. Clinical progress has been beneficial. More clear, more awake. Dementia and forgetfulness is an issue, but conduct has been appropriate. Pelvis appears to be stabilizing, walking 243 feet with walker only. Describes no pain of consequence. MEDICATIONS: Medications on board are appropriate, very little actually. Metoprolol, potassium, Atarax for agitation, and citalopram. RADIOGRAPHS: Pelvis x-ray on 11/29/2018 revealed insufficiency fracture of pubic symphysis, comminution, but no change in position. CT from 11/15 reviewed. Otherwise, doing well. LABORATORY STUDIES: None. OBJECTIVE: VITALS: 36.1, 87, 140/79, 18, and 96%. GENERAL: In good spirits. Bright, awake. NECK: Benign. CHEST: Clear all lung zavala. HEART: No ectopy, soft murmur. ABDOMEN: Benign. MUSCULOSKELETAL: No palpable tenderness over pelvis. ASSESSMENT: 1. Pelvic fracture. 2. Improving social mentation well being. PLAN: Discharge plans to the [facility] for short-term stay and consideration for return to [address] upcoming and planned. /[id number] CALEB/YANET
[2018-12-01] MEDS: Calcitonin (Salmon) Nasal Spray 3.7 ML Bottle NAS SCH (20:15)
[2018-12-02] MEDS: Carboxymethylcellulose Sodium 0.5% Ophth Soln 15 ML Bottle EYEBOTH SCH (08:03)
[2018-12-02] MEDS: Lutein/Minerals/Vitamin C/Vitamin E Acetate Cap PO SCH (08:03)
[2018-12-02 08:04] VITALS: BP 105/59
[2018-12-02] MEDS: Metoprolol Succinate 25 MG Tab.ER PO SCH (08:04)
[2018-12-02] MEDS: Citalopram 20 MG Tab PO SCH (08:04)
[2018-12-02] MEDS: Acetaminophen 500 MG Tab PO SCH (08:04)
[2018-12-02] MEDS: Potassium Chloride 10 MEQ Tab.ER PO SCH (08:04)
[2018-12-02] MEDS: Cholecalciferol (Vitamin D3) 1,000 Unit Tab PO SCH (08:04)
[2018-12-02] MEDS: Psyllium Husk Powder Sugar Free 5.85 GM Packet PO SCH (08:04)
[2018-12-02] MEDS: Calcium Carbonate 500 MG Tablet PO SCH (08:04)
--- NOTE | 2018-12-03 13:46 | DISCH ---
DISCHARGE DATE: 12/02/2018 HOSPITAL COURSE: Ashlyn Woodall is a delightful 83-year-old female, admitted to swing bed in transfer from acute care. She was found to have a pubic symphysis fracture, complicated delirium, and reaction to medications, narcotic in particular. During her hospital stay things went well. Pain medications were reduced. Ambulation was increased, PT was actively involved. At the time of discharge was up, ambulating to 200 to 300 feet, was active, appropriate, comfortable with medications and care, and discharged home in good condition. She is tolerating the ibuprofen, must be taken routinely with meals. PHYSICAL EXAMINATION: VITAL SIGNS: 36.1, 87, 140/79, 18, and 96%. GENERAL: In good spirits. A bit confused, but comfortable. HEENT: Mouth and oropharynx clear. NECK: Benign. Thyroid small. CHEST: Clear in all lung zavala. No adventitious sounds. HEART: Occasional ectopy, soft murmur. ABDOMEN: Benign. No hepatosplenomegaly. GENITOURINARY: Deferred. RECTAL: Deferred. EXTREMITIES: Well perfused. Venous stasis changes are present, toes downgoing. No palpable tenderness over pelvis. ASSESSMENT: 1. Pelvic fracture, stable improving. 2. Delirium, resolved. PLAN: Discharge home. Timely care, medications, and appropriate treatment. Initially to [facility], but plans from there to maybe go back to [facility], opportunity is noted. Surgical procedures, none. Consultations, none. /[id number] CALEB/YANET
== END 2018-12-02 09:57 | DRG 560 ==
LOC: FB.MS 09:15
PROVIDERS: ADMIT Family Medicine; ATTEND Family Medicine
DX: S32.9XXD Fracture of unspecified parts of lumbosacral spine and pelvis, subsequent encounter for fracture with routine healing (principal); F11.921 Opioid use, unspecified with intoxication delirium; S32.599D Other specified fracture of unspecified pubis, subsequent encounter for fracture with routine healing; M81.0 Age-related osteoporosis without current pathological fracture; I10 Essential (primary) hypertension; F41.1 Generalized anxiety disorder; G31.84 Mild cognitive impairment of uncertain or unknown etiology; H54.7 Unspecified visual loss; Z87.440 Personal history of urinary (tract) infections; M19.90 Unspecified osteoarthritis, unspecified site; E78.5 Hyperlipidemia, unspecified; H35.30 Unspecified macular degeneration; K58.9 Irritable bowel syndrome, unspecified; Z90.49 Acquired absence of other specified parts of digestive tract; Z90.710 Acquired absence of both cervix and uterus; Z88.5 Allergy status to narcotic agent
CPT/HCPCS: 72170; 97110-GP; 97116-GP; 97140-GP; 97165-GO; 97530-GO; A9270-GY

== ENCOUNTER 2021-05-04 07:39 | Emergency (ER) | payer MEDICARE, OTHER ==
[2021-05-04] MEDS ORDERED: Sodium Chloride 0.9% 10 ML Syringe FLUSH PRN (07:50)
[2021-05-04] MEDS ORDERED: Sodium Chloride 0.9% 1,000 ML IV ONE (08:37)
--- NOTE | 2021-05-04 09:13 | EDM.PDOC ---
ED HPI GENERAL MEDICAL PROBLEM - General Chief Complaint: Lower Extremity Injury/Pain Stated Complaint: FALL Time Seen by Provider: 05/04/21 08:00 Source of Information: Reports: Patient History Limitations: Reports: No Limitations - History of Present Illness INITIAL COMMENTS - FREE TEXT/NARRATIVE: c/o fall and right hip pain from [facility], fell this AM, d/w RN who stated that pt had been in good health, pt has memory difficulties, pt denies being ill pt states she has pain in her right hip - Related Data Allergies Allergy/AdvReac Type Severity Reaction Status Date / Time propoxyphene Allergy Other Verified 11/27/18 11:03 [From Darvocet-N] oxycodone HCl [From Percocet] AdvReac Intermediate Hallucinati Verified 11/27/18 11:03 ons Home Meds: Home Meds Acetaminophen [Tylenol Extra Strength] 1,000 mg PO TID 03/21/18 [History] Citalopram Hydrobromide [Celexa] 20 mg PO DAILY 03/21/18 [History] Carboxymethylcellulose Sodium [Refresh Tears 0.5%] 1 drop EYEBOTH BID 11/14/18 [History] Loperamide HCl [Imodium A-D] 2 mg PO DAILY PRN 11/14/18 [History] Vit C/E/Zn/Coppr/Lutein/Zeaxan [Preservision Areds 2 Softgel] 1 cap PO BID 11/14/18 [History] Calcitonin ([place]) [Miacalcin Nasal [place]] 1 spray DENNISE BEDTIME #1 bottle 11/19/18 [Rx] Cholecalciferol (Vitamin D3) [Vitamin D3] 1,000 units PO DAILY #60 tablet 11/19/18 [Rx] Potassium Chloride [Klor-Con 10] 10 meq PO DAILY #30 tab.er 11/19/18 [Rx] Calcium Carbonate/Vitamin D3 [Calcium 600 + Vit D 200] 1 tab PO BID 11/23/18 [History] Ibuprofen 400 mg PO TID PRN 11/23/18 [History] MO/Pet,Wh/Phenylephrine/Shk Lv [Preparation H Oint] 1 applic RECTAL BID 11/23/18 [History] Metoprolol Succinate [Toprol XL] 25 mg PO DAILY 11/23/18 [History] Psyllium Husk (With Sugar) [Metamucil Powder] 1 tsp PO DAILY 11/23/18 [History] hydrOXYzine HCL [hydrOXYzine] 25 mg PO BID #60 tablet 11/26/18 [Rx] hydrOXYzine HCL [hydrOXYzine] 25 mg PO Q8H PRN #30 tablet 12/02/18 [Rx] Past Medical History HEENT History: Reports: Impaired Vision, Macular Degeneration Other HEENT History: wears glasses Cardiovascular History: Reports: Hypertension Other Cardiovascular History: information given by son does not know all of patients hx, patient is unable to answer is confused Respiratory History: Reports: None Gastrointestinal History: Reports: Hemorrhoids, Irritable Bowel Syndrome, Other (See Below) Other Gastrointestinal History: reported to have constipation Genitourinary History: Reports: UTI, Recurrent, Other (See Below) Other Genitourinary History: Acute cystitis MANGA ARTIST History: Reports: Other MANGA ARTIST History: Musculoskeletal History: Reports: Arthritis, Fracture, Osteoarthritis, Other (See Below) Other Musculoskeletal History: arthritis Neurological History: Reports: Cerebral Aneurysms Other Neuro History: trouble with memory Psychiatric History: Reports: Anxiety, Dementia Endocrine/Metabolic History: Reports: None Other Endocrine/Metabolic History: Hyponatremia, hyperlipidemia Hematologic History: Reports: None Dermatologic History: Reports: None - Infectious Disease History Infectious Disease History: Reports: Chicken Pox, Measles, Mumps Other Infectious Disease History: daughter unsure - Past Surgical History HEENT Surgical History: Reports: Cataract Surgery Cardiovascular Surgical History: Reports: None Respiratory Surgical History: Reports: None GI Surgical History: Reports: Cholecystectomy, Colonoscopy, Other (See Below) Other GI Surgeries/Procedures: sigmoidoscopy Female Surgical History: Reports: D&C, Hysterectomy Endocrine Surgical History: Reports: None Neurological Surgical History: Reports: Scoliosis Musculoskeletal Surgical History: Reports: Other (See Below) Other Musculoskeletal Surgeries/Procedures:: hip repair left done, fx wrist, collar bone Dermatological Surgical History: Reports: None Social & Family History - Family History Family Medical History: No Pertinent Family History HEENT: Reports: None GI: Reports: None OBGYN: Reports: Other (See Below) Other OBGYN Family History: fibroids, hysterectomy Musculoskeletal: Reports: Other (See Below) Other Musculoskeletal Family History: scoliosis Psychiatric: Reports: Anxiety Endocrine/Metabolic: Reports: Diabetes, type II Oncologic: Reports: Lung - Tobacco Use Tobacco Use Status *Q: Unknown Ever Used Tobacco - Caffeine Use Caffeine Use: Reports: Coffee Review of Systems - Review of Systems Review Of Systems: See Below Constitutional: Reports: No Symptoms Eyes: Reports: No Symptoms Ears: Reports: No Symptoms Nose: Reports: No Symptoms Mouth/Throat: Reports: No Symptoms Respiratory: Reports: No Symptoms Cardiovascular: Reports: No Symptoms GI/Abdominal: Reports: No Symptoms Genitourinary: Reports: No Symptoms Musculoskeletal: Reports: Other (right hip pain) Skin: Reports: No Symptoms Neurological: Reports: No Symptoms Psychiatric: Reports: No Symptoms ED EXAM, GENERAL - Physical Exam Exam: See Below Free Text/Narrative:: pt with memory difficulties, knew she was in care home, could not remember the name, thought it was May 2020 Exam Limited By: No Limitations General Appearance: Alert, WD/WN, No Apparent Distress Ears: Hearing Grossly Normal Nose: Normal Inspection, Normal Mucosa, No Blood Throat/Mouth: Normal Inspection, Normal Lips, Normal Teeth, Normal Voice, No Airway Compromise Head: Atraumatic, Normocephalic Neck: Normal Inspection, Supple, Non-Tender, Full Range of Motion. No: Lymphadenopathy (R), Lymphadenopathy (L) Respiratory/Chest: No Respiratory Distress, Lungs Clear, Normal Breath Sounds, Chest Non-Tender Cardiovascular: Regular Rate, Rhythm, No Edema, No Murmur GI/Abdominal: Soft, Non-Tender, No Distention Back Exam: Normal Inspection, Full Range of Motion. No: CVA Tenderness (R), CVA Tenderness (L) Extremities: No Pedal Edema, Other (shortening RLE by 6 cm with external rotation, bounding 2+ DP pulse on left, DP pulse not palpable on right, however POCUS showed a strong PT pulse on doppler) Neurological: Alert, Oriented, CN II-XII Intact, Normal Cognition, No Motor/Sensory Deficits Psychiatric: Normal Affect, Normal Mood Skin Exam: Warm, Dry, Intact, Normal Color, No Rash Lymphatic: No Adenopathy #1 Interpretation EKG Date: 05/04/21 Time: 09:05 Rhythm: NSR Sabina: Normal P-Wave: Present QRS: Normal ST-T: Normal QT: Normal (no ST/ischemic changes) Course - Vital Signs Last Recorded V/S: Last Vital Signs Temp 36.9 C 05/04/21 07:45 Pulse 77 11/06/21 07:45 Resp 16 05/04/21 07:45 BP 175/83 H 05/04/21 07:45 Pulse Ox 97 05/04/21 07:45 - Orders/Labs/Meds Orders: Active Orders 24 hr Category Date Time Status EKG Documentation Completion [RC] ASDIRECTED Care 05/04/21 08:37 Active Hip Min 2V or 3V w Pelvis Rt [CR] Stat Exams 05/04/21 09:02 Taken CORONAVIRUS COVID-19 SANDRO [MOLEC] Stat Lab 05/04/21 09:01 Ordered EKG 12 Lead [EK] Routine Ther 05/04/21 08:37 Ordered Labs: Laboratory Tests 05/04/21 05/04/21 05/04/21 Range/Units 08:55 09:35 09:35 WBC (3.0-10.3) x10-3/uL RBC (3.60-5.20) x10(6)uL Hgb (11.4-15.5) g/dL Hct (34.2-48.2) % MCV (76.7-100.5) fL MCH (23.9-33.9) pg MCHC (31.9-34.8) g/dL RDW (12.3-16.5) % Plt Count (151-488) x10(3)uL MPV (7.1-12.4) fL Neut % (Auto) (30.8-76.2) % Lymph % (Auto) (18.4-52.1) % Robertson % (Auto) (4.4-15.7) % Eos % (Auto) (0.6-8.1) % Baso % (Auto) (0.2-1.5) % Neut # (Auto) (1.5-6.3) x10-3/uL Lymph # (Auto) (1.0-4.4) x10-3/uL Robertson # (Auto) (0.3-1.0) x10-3/uL Eos # (Auto) (0.0-0.8) x10-3/uL Baso # (Auto) (0.0-0.1) x10-3/uL Sodium 142 (135-145) mmol/L Potassium 4.0 (3.5-5.3) mmol/L Chloride 106 (100-110) mmol/L Carbon Dioxide 28 (21-32) mmol/L BUN 21 H (7-18) mg/dL Creatinine 0.9 (0.55-1.02) mg/dL Est Cr Clr Drug Dosing TNP Estimated GFR (MDRD) 60 (>60) BUN/Creatinine Ratio 23.3 H (9-20) Glucose 110 (80-116) mg/dL Calcium 8.9 (8.6-10.2) mg/dL Total Bilirubin 1.1 (0.1-1.3) mg/dL AST 15 D (5-25) IU/L ALT 20 D (12-36) U/L Alkaline Phosphatase 66 (56-112) IU/L Troponin I 7.9 (4.0-60.3) pg/mL C-Reactive Protein < 0.2 L (0.5-0.9) mg/dL Total Protein 6.1 (6.0-8.0) g/dL Albumin 3.8 (3.2-4.6) g/dL Globulin 2.3 g/dL Albumin/Globulin Ratio 1.7 Urine Color Yellow (YELLOW) Urine Appearance Clear (CLEAR) Urine pH 5.0 (5.0-6.5) Ur Specific [place] 1.020 (1.010-1.025) Urine Protein Negative (NEGATIVE) mg/dL Urine Glucose (UA) Normal (NORMAL) mg/dL Urine Ketones Negative (NEGATIVE) mg/dL Urine Occult Blood Negative (NEGATIVE) Urine Nitrite Negative (NEGATIVE) Urine Bilirubin Negative (NEGATIVE) Urine Urobilinogen Normal (NEGATIVE) mg/dL Ur Leukocyte Esterase Negative (NEGATIVE) Urine RBC 0-5 (0-5) Urine WBC 0-5 (0-5) Ur Squamous Epith Cells Few H (NS,R,O) Urine Bacteria Few H (NS) 05/04/21 Range/Units 09:35 WBC 7.4 (3.0-10.3) x10-3/uL RBC 3.98 (3.60-5.20) x10(6)uL Hgb 12.7 (11.4-15.5) g/dL Hct 39.0 (34.2-48.2) % MCV 97.9 (76.7-100.5) fL MCH 32.0 (23.9-33.9) pg MCHC 32.7 (31.9-34.8) g/dL RDW 13.9 (12.3-16.5) % Plt Count 168 (151-488) x10(3)uL MPV 7.4 (7.1-12.4) fL Neut % (Auto) 79.1 H (30.8-76.2) % Lymph % (Auto) 12.2 L (18.4-52.1) % Robertson % (Auto) 6.9 (4.4-15.7) % Eos % (Auto) 1.4 (0.6-8.1) % Baso % (Auto) 0.4 (0.2-1.5) % Neut # (Auto) 5.8 (1.5-6.3) x10-3/uL Lymph # (Auto) 0.9 L (1.0-4.4) x10-3/uL Robertson # (Auto) 0.5 (0.3-1.0) x10-3/uL Eos # (Auto) 0.1 (0.0-0.8) x10-3/uL Baso # (Auto) 0.0 (0.0-0.1) x10-3/uL Sodium (135-145) mmol/L Potassium (3.5-5.3) mmol/L Chloride (100-110) mmol/L Carbon Dioxide (21-32) mmol/L BUN (7-18) mg/dL Creatinine (0.55-1.02) mg/dL Est Cr Clr Drug Dosing Estimated GFR (MDRD) (>60) BUN/Creatinine Ratio (9-20) Glucose (80-116) mg/dL Calcium (8.6-10.2) mg/dL Total Bilirubin (0.1-1.3) mg/dL AST (5-25) IU/L ALT (12-36) U/L Alkaline Phosphatase (56-112) IU/L Troponin I (4.0-60.3) pg/mL C-Reactive Protein (0.5-0.9) mg/dL Total Protein (6.0-8.0) g/dL Albumin (3.2-4.6) g/dL Globulin g/dL Albumin/Globulin Ratio Urine Color (YELLOW) Urine Appearance (CLEAR) Urine pH (5.0-6.5) Ur Specific [place] (1.010-1.025) Urine Protein (NEGATIVE) mg/dL Urine Glucose (UA) (NORMAL) mg/dL Urine Ketones (NEGATIVE) mg/dL Urine Occult Blood (NEGATIVE) Urine Nitrite (NEGATIVE) Urine Bilirubin (NEGATIVE) Urine Urobilinogen (NEGATIVE) mg/dL Ur Leukocyte Esterase (NEGATIVE) Urine RBC (0-5) Urine WBC (0-5) Ur Squamous Epith Cells (NS,R,O) Urine Bacteria (NS) Meds: Medications Discontinued Medications Generic Name Dose Route Start Last Admin Trade Name Freq PRN Reason Stop Dose Admin Sodium Chloride 1,000 mls @ 999 mls/hr 05/04/21 08:37 05/04/21 10:10 Normal Saline IV 05/04/21 09:37 999 mls/hr .BOLUS ONE Administration Morphine Sulfate 2 mg 05/04/21 11:17 05/04/21 11:37 Morphine 2 Mg/Ml Syringe IVPUSH 05/04/21 11:18 2 mg ONETIME ONE Administration Ondansetron HCl 4 mg 05/04/21 11:17 05/04/21 11:37 Ondansetron 4 Mg/2 Ml Sdv IVPUSH 05/04/21 11:18 4 mg ONETIME ONE Administration - Re-Assessments/Exams Free Text/Narrative Re-Assessment/Exam: 05/04/21 09:16 daughter reports that pt has had delirium with narcotics in the past pt has left THR per daughter (which pt does not remember) 05/04/21 12:12 d/w Funmilayo midlevel on ortho team at [facility] at 11:45a who accepted pt in transfer, Dr Duff hospitalist called at 12:05p and also accepted, reviewed with daughter who is in agreement, liam shannon made a disc Departure - Departure Time of Disposition: 12:14 Disposition: DC/Tfer to Acute Hospital 02 Condition: Good Clinical Impression: Intertrochanteric fracture of right femur - Discharge Information *PRESCRIPTION DRUG MONITORING PROGRAM REVIEWED*: Not Applicable *COPY OF PRESCRIPTION DRUG MONITORING REPORT IN PATIENT DINA: Not Applicable Referrals: Paula Gallardo NP [Primary Care Provider] - Forms: ED Department Discharge Sepsis Event Note (ED) - Evaluation Sepsis Screening Result: No Definite Risk - Focused Exam Vital Signs: Vital Signs Temp Pulse Resp BP Pulse Ox 05/04/21 07:45 36.9 C 77 16 175/83 H 97 - My Orders Last 24 Hours: My Active Orders 05/04/21 08:37 EKG Documentation Completion [RC] ASDIRECTED EKG 12 Lead [EK] Routine 05/04/21 09:01 CORONAVIRUS COVID-19 SANDRO [MOLEC] Stat 05/04/21 09:02 Hip Min 2V or 3V w Pelvis Rt [CR] Stat - Assessment/Plan Last 24 Hours: My Active Orders 05/04/21 08:37 EKG Documentation Completion [RC] ASDIRECTED EKG 12 Lead [EK] Routine 05/04/21 09:01 CORONAVIRUS COVID-19 SANDRO [MOLEC] Stat 05/04/21 09:02 Hip Min 2V or 3V w Pelvis Rt [CR] Stat
[2021-05-04] MEDS ORDERED: Morphine 2 MG/ML SYRINGE IVPUSH ONE (11:17)
[2021-05-04] MEDS ORDERED: Ondansetron 4 MG/2 ML SDV IVPUSH ONE (11:17)
[2021-05-04] MEDS ORDERED: traMADol 50 MG Tab PO ONE (13:13)
[2021-05-04 20:33] VITALS: BP 152/78; PULSE 80
== END 2021-05-04 16:15 ==
LOC: FB.ED 07:39
DX: S72.141A Displaced intertrochanteric fracture of right femur, initial encounter for closed fracture (principal); I10 Essential (primary) hypertension; Z88.8 Allergy status to other drugs, medicaments and biological substances; Z88.5 Allergy status to narcotic agent; Z79.899 Other long term (current) drug therapy; Z20.822 Contact with and (suspected) exposure to COVID-19; W06.XXXA Fall from bed, initial encounter; Y92.129 Unspecified place in nursing home as the place of occurrence of the external cause
CPT/HCPCS: 36415; 51702; 73502; 80053; 81001; 84484; 85025; 86140; 93005; 96374; 96375; 99285; A9270; J2270; J2405; J7030; U0002

== ENCOUNTER 2022-02-19 23:27 | Emergency (ER) | payer MEDICARE, OTHER ==
[2022-02-19 23:36] VITALS: BP 142/80; PULSE 74
[2022-02-20] MEDS ORDERED: Lidocaine 4% 1 each Patch TOP SCH (00:30)
== END 2022-02-20 01:20 ==
LOC: FB.ED 23:27
DX: I10 Essential (primary) hypertension (principal); M19.90 Unspecified osteoarthritis, unspecified site; Z88.5 Allergy status to narcotic agent; Z88.8 Allergy status to other drugs, medicaments and biological substances
CPT/HCPCS: 70450; 71101-RT; 99284; 99285

== ENCOUNTER 2022-02-25 17:30 | Emergency (ER) | payer MEDICARE, OTHER ==
[2022-02-25] MEDS: Ibuprofen 600 MG Tab PO ONE (19:13)
[2022-02-25 23:14] VITALS: BP 145/64; PULSE 84
== END 2022-02-25 20:56 ==
LOC: FB.ED 17:30
DX: S20.212A Contusion of left front wall of thorax, initial encounter (principal); I10 Essential (primary) hypertension; M19.90 Unspecified osteoarthritis, unspecified site; Z88.5 Allergy status to narcotic agent; Z88.8 Allergy status to other drugs, medicaments and biological substances; W19.XXXA Unspecified fall, initial encounter
CPT/HCPCS: 71101; 73030; 99283; A9270